=== PATIENT | male | born 1945 | race Caucasian/White ===

== ENCOUNTER 2019-02-06 14:18 | Inpatient (IN) | payer OTHER ==
--- NOTE | 2019-02-06 14:23 | PDOC ---
Rapid Medical Evaluation Time Seen by Provider: 02/06/19 14:20 Medical Evaluation: 02/06/19 14:20 I performed a brief in-person evaluation of this patient. 73-year-old Gibraltarian-speaking male with history of HTN, HLD presenting with 3 days of intermittent chest pain, was told by PCP had abnormal EKG in office. No symptoms currently. Alert, oriented, no distress. I have ordered the following: Stat EKG CBC, CMP, trop, BNP, PT/INR, UA CXR Patient will proceed to the main ED for further evaluation. Discharge Disposition - Diagnosis Chest pain - Referrals - Patient Instructions - Post Discharge Activity
[2019-02-06 15:01] LABS: BASO % 0.6 % (0-2.0); EOS % 2.3 % (0-4.5); HEMATOCRIT 43.6 % (35.4-49); HEMOGLOBIN 14.8 GM/dL (11.7-16.9); LYMPH % 25.8 % (8-40); MCH 32.7 pg (25.7-33.7); MCHC 33.9 g/dl (32.0-35.9); MEAN CELL VOLUME 96.5 fl (80-96); MEAN PLT VOLUME 8.7 fl (7.5-11.1); MONO % 11.4 % (3.8-10.2); NEUT % 59.9 % (42.8-82.8); PLATELET COUNT 199 K/MM3 (134-434); RBC 4.52 M/mm3 (4.00-5.60); RDW 13.6 % (11.9-15.9); WHITE BLOOD COUNT 6.5 K/mm3 (4.0-10.0)
[2019-02-06 15:22] LABS: INR 1.14 (0.83-1.09); PROTHROMBIN TIME (PATIENT) 13.5 SEC (9.7-13.0)
--- NOTE | 2019-02-06 15:30 | PDOC ---
History of Present Illness - General Chief Complaint: Chest Pain Stated Complaint: CHEST PAIN Time Seen by Provider: 02/06/19 14:20 History Source: Patient, Friend (Tesfaye ), Remote Sensing Advisor Used Exam Limitations: Language Barrier - History of Present Illness Initial Comments: 02/06/19 17:10 73yo M with PMH of HTN, HLD presenting from PMD office for abnormal ekg. Patient had been complaining of epigastric pain for 3d and went to his pmd's office. Right now he is denying chest pain, sob, back pain, headache, weakness, numbness/tingling, fevers, chills, cough, recent travel. He is taking Aleeve and another medication for his stomach pains. Denies binge drinking, tobacco use , drug use. PMD: Cristobal PMH: see hpi PSH: appendectomy Meds: none Allergies: nkda Social: occasional alcohol use (beer), remote history of tobacco use Past History - Past Medical History Allergies/Adverse Reactions: Allergies Allergy/AdvReac Type Severity Reaction Status Date / Time No Known Allergies Allergy Verified 02/06/19 14:20 Home Medications: Ambulatory Orders NK [No Known Home Medication] 02/06/19 COPD: No HTN: Yes Hypercholesterolemia: Yes - Immunization History Immunization Up to Date: No - Psycho Social/Smoking Cessation Hx Smoking History: Never smoked Have you smoked in the past 12 months: No Information on smoking cessation initiated: No Hx Alcohol Use: No Drug/Substance Use Hx: No Review of Systems - Review of Systems Constitutional: No: Chills, Fever, Weakness HEENTM: No: Symptoms Reported Respiratory: Yes: SOB with Exertion. No: Cough Cardiac (ROS): No: Chest Pain, Lightheadedness, Palpitations ABD/GI: Yes: Abdominal cramping. No: Constipated, Diarrhea, Nausea, Vomiting Musculoskeletal: No: Symptoms Reported Integumentary: No: Symptoms Reported Neurological: No: Symptoms reported *Physical Exam - Vital Signs Last Vital Signs Temp Pulse Resp BP Pulse Ox 98.2 F 71 16 147/104 H 97 02/06/19 14:21 02/06/19 14:21 02/06/19 14:21 02/06/19 14:21 02/06/19 14:21 - Physical Exam General Appearance: Yes: Appropriately Dressed, Obese. No: Apparent Distress HEENT: positive: EOMI, PAGE, Normal ENT Inspection Neck: positive: Trachea midline, Supple. negative: Decreased range of motion, Lymphadenopathy (R), Lymphadenopathy (L) Respiratory/Chest: positive: Crackles (in lower [place]). negative: Lungs Clear , Normal Breath Sounds, Labored Respiration, Rales, Rhonchi, Wheezing Cardiovascular: positive: S1, S2, Tachycardia, Irregularly Irregular. negative : JVD, Murmur Vascular Pulses: Carotid (R): 2+, Carotid (L): 2+ Gastrointestinal/Abdominal: positive: Normal Bowel Sounds, Soft. negative: Tender, Guarding, Rebound, Tenderness, Hernia Musculoskeletal: negative: CVA Tenderness Extremity: positive: Normal Capillary Refill, Pelvis Stable, Pedal Edema (1+). negative: Swelling, Calf Tenderness Integumentary: positive: Normal Color, Dry, Warm Neurologic: positive: material damage appraiser II-XII NML intact, Fully Oriented, Alert, Normal Mood/ Affect, Normal Response, Motor Strength 09/03 ED Treatment Course - LABORATORY CBC & Chemistry Diagram: 02/06/19 14:46 02/06/19 14:46 - ADDITIONAL ORDERS Additional order review: Laboratory Results 02/06/19 14:46 PT with INR 13.50 H INR 1.14 H 02/06/19 14:46 RBC 4.52 MCV 96.5 H MCHC 33.9 RDW 13.6 MPV 8.7 Neutrophils % 59.9 Lymphocytes % 25.8 Monocytes % 11.4 H Eosinophils % 2.3 Basophils % 0.6 Medical Decision Making - Medical Decision Making 02/06/19 15:30 patient being roomed now, 1h11m into ED visit 73y M with PMH of HTN, HLD presenting from pmd office for abnormal ekg: afib rvr. vitals: tachycardia, bp 140s/100s, saturating well on RA, not tachypenic, afebrile. labs, xray and ekg ordered by e. 02/06/19 17:13 patient found to be in Afib RVR in the 130s. mentating well, no signs of acute distress. labs ordered by RME. pending CXR. ekg: afib with rvr at 121 bpm, no sawyer or deperssions, no signs of acute ichemia. normal qrs, qtc labs show elevated BNP. Cardizem 20mg given with fluids. [id number] score of 2. Will benefit from admission to be started on medications and AC. CXR shows vascular congestion. will give lasix 40mg iv. accepted by hospitalist. 02/06/19 19:20 HR in the 130s, bp 140s/100s. will order 20mg iv cardizem and 30mg po cardizem. Discharge - Discharge Information Problems reviewed: Yes Clinical Impression/Diagnosis: Atrial fibrillation with RVR CHF (congestive heart failure) Qualifiers: Heart failure type: unspecified Heart failure chronicity: acute Qualified Code( s): I50.9 - Heart failure, unspecified Condition: Stable - Admission Yes - Follow up/Referral - Patient Discharge Instructions - Post Discharge Activity
[2019-02-06 15:38] LABS: ALBUMIN 3.8 g/dl (3.4-5.0); BILIRUBIN,TOTAL 1.1 mg/dL (0.2-1); BLOOD UREA NITROGEN 23.6 mg/dL (7-18); CALCIUM 8.7 mg/dL (8.5-10.1); CREATININE 1.2 mg/dL (0.55-1.3); N-TERMINAL BNP 2477.3 pg/ml (5-125); TOT PROT 7.1 g/dl (6.4-8.2)
[2019-02-06] MEDS ORDERED: dilTIAZem HCL 50 MG/10 ML - 10 ML VIAL IVPUSH ONE ×3 (15:38→18:51)
[2019-02-06] MEDS ORDERED: SODIUM CHLORIDE 1,000 ML IV STA (15:38)
[2019-02-06] MEDS ORDERED: dilTIAZem HCL 125 MG/25 ML - 25 ML VIAL ONE (16:10)
--- NOTE | 2019-02-06 16:30 | PDOC ---
Attending Attestation - Resident Resident Name: Karen Jeronimo - ED Attending Attestation I have performed the following: I have examined & evaluated the patient, The case was reviewed & discussed with the resident, I agree w/resident's findings & plan, Exceptions are as noted - HPI HPI: 02/06/19 16:19 73 M with h/o HTN, HLD presenting to ED with chest and epigastric pain x 3 days. Pt denies any SOB. Denies F/C. Denies N/V/D. Denies palpitations. Denies any leg swelling. - Physicial Exam PE: 02/06/19 16:33 "GENERAL: Awake, alert, and fully oriented, in no acute distress. HEAD: No signs of trauma EYES: PERRLA, EOMI, sclera anicteric, conjunctiva clear ENT: Auricles normal inspection, hearing grossly normal, nares patent, oropharynx clear without exudates. Moist mucosa NECK: Nontender, no stepoffs, Normal ROM, supple, no lymphadenopathy, JVD, or masses LUNGS: Breath sounds equal, clear to auscultation bilaterally. No wheezes, and no crackles HEART: tachycardic, irregular, normal S1 and S2, no murmurs, rubs or gallops ABDOMEN: Soft, nontender, normoactive bowel sounds. No guarding, no rebound. No masses EXTREMITIES: Normal range of motion, no edema. No clubbing or cyanosis. No cords, erythema, or tenderness NEUROLOGICAL: Cranial nerves II through XII intact. 5/5 strength and sensation in all extremities, Normal speech, normal gait, normal cerebellar function SKIN: Warm, Dry, normal turgor, no rashes or lesions noted. - Medical Decision Making 02/06/19 16:33 73 M with chest pain, epigastric pain. Found to be in new onset afib with RVR. Pt with benign abdominal exam. - Labs, trops - Rate control - Admit for likely anticoagulation and echo
[2019-02-06] MEDS ORDERED: FUROSEMIDE 40 MG/4 ML INJECTABLE VIAL IVPUSH ONE (18:02)
[2019-02-06] MEDS ORDERED: FUROSEMIDE 40 MG/4 ML INJECTABLE VIAL ONE ×2 (18:25→20:26)
[2019-02-06] MEDS ORDERED: dilTIAZem HCL 30 MG TABLET (FP) PO ONE (18:51)
[2019-02-06] MEDS ORDERED: dilTIAZem HCL 30 MG TABLET (FP) ONE (18:54)
[2019-02-06 19:52] LABS: BILIRUBIN,DIRECT 0.3 mg/dL (0.0-0.2)
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
--- NOTE | 2019-02-06 21:01 | PN ---
Teaching Attending Note Name of Resident: Adalid Chavarria ATTENDING PHYSICIAN STATEMENT I saw and evaluated the patient. I reviewed the resident's note and discussed the case with the resident. I agree with the resident's findings and plan as documented. SUBJECTIVE: 73 yo man c/o chest pain and sob for 4 days. Chest pain is midline and in the epigastric region, intermittent, not radiating. Shortness of breath worse when lying down. Unable to sleep flat comfortably and requires multiple pillows. decreased exercise tolerance. No fevers or recent travels. OBJECTIVE: Last Vital Signs Temp Pulse Resp BP Pulse Ox 97.5 F L 105 H 24 H 143/93 95 02/06/19 19:20 02/06/19 19:25 02/06/19 19:25 02/06/19 19:25 02/06/19 19:25 gen- nad, aaox3 heent -at, nc neck b/l jvd cv -s1+s+ irregularly irregular, no acute ischemic changes abdomen -soft, nt ext -2+ pitting edema up to med shins Abnormal Lab Results 02/06/19 02/06/19 02/06/19 14:46 14:46 14:46 MCV 96.5 H Monocytes % 11.4 H PT with INR 13.50 H INR 1.14 H Chloride 108 H Anion Gap 6 L BUN 23.6 H Total Bilirubin 1.1 H Direct Bilirubin 0.3 H AST 41 H B-Natriuretic Peptide 2477.3 H imaging reviewed cxr - b/l pulm edema present ekg- afib with rvr ASSESSMENT AND PLAN: #Systolic heart failure exacerbation. No old echos on file, first visit to this hospital. CXR c/w pulm edema, bnp elevated .FLuid overload+, +orthopnea. Patient was c/o some chest pain and ACS should be r/o. Trop neg x1 -admit to telemetry -Furosemide 40mg IV bid -i/o -daily weights -echo -start lisinopril 10mg po daily ,titrate as needed -blockers tomorrow #Afib with RVR- rate now better controlled as patient received multiple doses of diltiazem. CHADSVACS 2 score is a least 2 so AC is warranted -start carvedilol 3.125mg po bid for chf and rate control -cardiology evaluation -start on lovenox 1g/kg for ac #ETOH abuse -pt drinks 2 beers daily -ciwa protocol -ativan prn -thiamine -folate -mv -urine drug screen -lovenox for dvt ppx
[2019-02-06] MEDS: ENOXAPARIN NA (PORCINE) 100 MG/1 ML DISP.SYRIN SQ SCH (23:02)
[2019-02-07 01:39] LABS: EPI CELLS 0.1 /HPF (0-5/HPF); HYALINE CASTS 0 /lpf (0-8); PH,URINE 5.5 (5.0-8.0); URINE APPEARANCE CLEAR; URINE BACTERIA 2.6 /hpf (NEGATIVE); URINE BILIRUBIN NEGATIVE (NEGATIVE); URINE COLOR YELLOW; URINE GLUCOSE (UA) NEGATIVE (NEGATIVE); URINE KETONE NEGATIVE (NEGATIVE); URINE LEUK ESTERASE NEGATIVE (NEGATIVE); URINE NITRITE NEGATIVE (NEGATIVE); URINE PROTEIN NEGATIVE (NEGATIVE); URINE RBC 5 /hpf (0-4); URINE UROBILINOGEN 0.2 mg/dL (0.2-1.0); URINE WBC 0 /hpf (0-5)
[2019-02-07] MEDS ORDERED: FUROSEMIDE 40 MG/4 ML INJECTABLE VIAL ONE (06:25)
[2019-02-07] MEDS: FUROSEMIDE 40 MG/4 ML INJECTABLE VIAL IVPUSH SCH ×2 (06:47→17:23)
[2019-02-07] MEDS ORDERED: FUROSEMIDE 40 MG TABLET (FP) PO SCH (08:00)
[2019-02-07] MEDS ORDERED: FUROSEMIDE 40 MG/4 ML INJECTABLE VIAL IVPUSH SCH (10:00)
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
[2019-02-07] MEDS: LISINOPRIL 10 MG TABLET (FP) PO SCH (11:30)
[2019-02-07] MEDS: FOLIC ACID 1 MG TABLET (FP) PO SCH (11:30)
[2019-02-07] MEDS: MULTIVITAMINS (DAILY MVI) TABLET (FP) PO SCH (11:30)
[2019-02-07] MEDS: ENOXAPARIN NA (PORCINE) 100 MG/1 ML DISP.SYRIN SQ SCH ×2 (11:30→21:26)
[2019-02-07] MEDS: PANTOPRAZOLE 40 MG TABLET (FP) PO SCH (11:30)
[2019-02-07] MEDS: THIAMINE HCL 100 MG TABLET (FP) PO SCH (11:30)
[2019-02-07 12:10] LABS: BASO % 0.8 % (0-2.0); EOS % 1.7 % (0-4.5); HEMATOCRIT 45.2 % (35.4-49); HEMOGLOBIN 15.2 GM/dL (11.7-16.9); LYMPH % 29.4 % (8-40); MCH 32.8 pg (25.7-33.7); MCHC 33.6 g/dl (32.0-35.9); MEAN CELL VOLUME 97.4 fl (80-96); MEAN PLT VOLUME 8.9 fl (7.5-11.1); MONO % 11.7 % (3.8-10.2); NEUT % 56.4 % (42.8-82.8); PLATELET COUNT 171 K/MM3 (134-434); RBC 4.64 M/mm3 (4.00-5.60); RDW 13.9 % (11.9-15.9); WHITE BLOOD COUNT 5.7 K/mm3 (4.0-10.0)
--- NOTE | 2019-02-07 12:57 | EKG ---
Test Reason : Blood Pressure : / mmHG Vent. Rate : 121 BPM Atrial Rate : 147 BPM P-R Int : 000 ms QRS Dur : 094 ms QT Int : 330 ms P-R-T Axes : 000 019 095 degrees QTc Int : 468 ms POOR DATA QUALITY, INTERPRETATION MAY BE ADVERSELY AFFECTED ATRIAL FIBRILLATION WITH RAPID VENTRICULAR RESPONSE VOLTAGE CRITERIA FOR LEFT VENTRICULAR HYPERTROPHY NONSPECIFIC ST AND T WAVE ABNORMALITY ABNORMAL ECG NO PREVIOUS ECGS AVAILABLE Confirmed by TRACI BASHIR, JESENIA ([id number]) on 02/07/2019 12:56:35 PM Referred By: Confirmed By:JESENIA AVILES MD
[2019-02-07 13:18] LABS: ALBUMIN 3.6 g/dl (3.4-5.0); BILIRUBIN,TOTAL 1.5 mg/dL (0.2-1); BLOOD UREA NITROGEN 20.5 mg/dL (7-18); CALCIUM 8.6 mg/dL (8.5-10.1); CREATININE 1.1 mg/dL (0.55-1.3); MAGNESIUM 2.3 mg/dL (1.8-2.4); PHOSPHOROUS 2.8 mg/dL (2.5-4.9); POTASSIUM 4.4 mmol/L (3.5-5.1); TOT PROT 7.4 g/dl (6.4-8.2)
--- NOTE | 2019-02-07 14:00 | ECHO ---
Name: ELYSSA CHAIREZ Exam:Adult Echocardiogram Study Date: 02/07/2019 10:39 AM Age: 73 yrs Reason For Study: EVALUATE CARDIAC FUNCTION Height: 68 in Weight: 230 lb BSA: 2.2 m2 MMode/2D Measurements & Calculations IVSd: 0.91 cm Ao root diam: 3.1 cm LVIDd: 6.1 cm LA dimension: 4.3 cm LVIDs: 5.0 cm LVPWd: 0.92 cm EDV(Teich): 186.9 ml LVOT diam: 2.3 cm ESV(Teich): 120.8 ml Doppler Measurements & Calculations MV E max adriano: 76.5 cm/sec Ao V2 max: 128.6 cm/sec MV A max adriano: 27.6 cm/sec Ao max P.6 mmHg MV E/A: 2.8 MV dec time: 0.17 sec ANEL(V,D): 2.2 cm2 LV V1 max P.9 mmHg MR max adriano: 444.6 cm/sec LV V1 max: 69.4 cm/sec MR max P.3 mmHg TR max adriano: 214.4 cm/sec Med Peak E' Adriano: 4.5 cm/sec TR max P.4 mmHg Med E/e': 17.0 Lat Peak E' Adriano: 9.4 cm/sec Lat E/e': 8.1 Procedure The study was technically difficult with many images being suboptimal in quality. Left Ventricle The left ventricle is mildly dilated. Left ventricular systolic function is severely reduced. Ejectio n Fraction = 30%. There is severe global hypokinesis of the left ventricle. Regional wall motion abnorm alities cannot be excluded due to limited visualization. Right Ventricle The right ventricle is normal in size and function. Atria The left atrium is mildly dilated. The right atrium is mildly dilated. Mitral Valve There is mild mitral valve thickening. There is no mitral valve stenosis. There is mild to moderate m itral regurgitation. Tricuspid Valve There is mild tricuspid valve thickening. There is no tricuspid stenosis. There is mild tricuspid regurgitation. Right ventricular systolic pressure is normal. Aortic Valve The aortic valve is not well visualized. No hemodynamically significant valvular aortic stenosis. No aortic regurgitation is present. Pulmonic Valve The pulmonic valve is not well visualized. Great Vessels The aortic root is normal size. Pericardium/Pleura There is no pericardial effusion. Interpretation Summary The study was technically difficult with many images being suboptimal in quality. The left ventricle is mildly dilated. Left ventricular systolic function is severely reduced. Ejection Fraction = 30%. There is severe global hypokinesis of the left ventricle. Regional wall motion abnormalities cannot be excluded due to limited visualization. The left atrium is mildly dilated. The right atrium is mildly dilated. There is mild tricuspid regurgitation. Right ventricular systolic pressure is normal. MD Toy Sánchez 02/07/2019 02:00 PM
--- NOTE | 2019-02-07 18:20 | PN ---
Teaching Attending Note Name of Resident: Luciana Davenport ATTENDING PHYSICIAN STATEMENT I saw and evaluated the patient. I reviewed the resident's note and discussed the case with the resident. I agree with the resident's findings and plan as documented. SUBJECTIVE: Patient seen and examined at bedside in ED. I used client technologies specialist service [phone] to speak with patient in latvian. Patient Services Coordinator ID number is #[id number]. Patient states he has mild chest pressure, better than this AM. Wants to go home. OBJECTIVE: Vital Signs Period Temp Pulse Resp BP Sys/Smith Pulse Ox Last 24 Hr 97.5 F-98.7 F 73-133 20-24 117-149/63-110 94-100 PHYSICAL EXAM: Gen: NAD CVS: s1s2, irreg irreg, tachycardic Abdomen: soft, nt,nd, obese Lungs: CTA b/l, unlabored Ext: trace edema Current Medications Generic Name Dose Route Start Last Admin Trade Name Freq PRN Reason Stop Dose Admin Enoxaparin Sodium 100 mg 02/06/19 21:00 02/07/19 11:30 Lovenox - SQ 100 mg Q12H KATHY Administration Folic Acid 1 mg 02/07/19 10:00 02/07/19 11:30 Folic Acid - PO 1 mg DAILY KATHY Administration Furosemide 40 mg 02/07/19 06:00 02/07/19 17:23 Lasix Injection - IVPUSH 40 mg BIDLASIX KATHY Administration Lisinopril 10 mg 02/07/19 10:00 02/07/19 11:30 Prinivil PO 10 mg DAILY KATHY Administration Metoprolol Succinate 50 mg 02/07/19 10:00 02/07/19 11:30 Toprol Xl - PO 50 mg DAILY KATHY Administration Multivitamins/Minerals/Vitamin C 1 tab 02/07/19 10:00 02/07/19 11:30 Tab-A-Vit - PO 1 tab DAILY KATHY Administration Pantoprazole Sodium 40 mg 02/07/19 10:00 02/07/19 11:30 Protonix - PO 40 mg DAILY KATHY Administration Thiamine HCl 100 mg 02/07/19 10:00 02/07/19 11:30 Vitamin B1 - PO 100 mg DAILY KATHY Administration Laboratory Results - last 24 hr 02/06/19 02/07/19 02/07/19 14:46 00:00 00:30 WBC RBC Hgb Hct MCV MCH MCHC RDW Plt Count MPV Absolute Neuts (auto) Neutrophils % Lymphocytes % Monocytes % Eosinophils % Basophils % Nucleated RBC % Sodium 140 Potassium 4.0 Chloride 108 H Carbon Dioxide 27 Anion Gap 6 L BUN 23.6 H Creatinine 1.2 Est GFR (CKD-EPI)AfAm 70.09 Est GFR (CKD-EPI)NonAf 60.47 Random Glucose 95 Calcium 8.7 Phosphorus Magnesium Total Bilirubin 1.1 H Direct Bilirubin 0.3 H AST 41 H ALT 58 Alkaline Phosphatase 61 Creatine Kinase 160 Creatine Kinase Index 1.6 CK-MB (CK-2) 2.6 Troponin I 0.04 0.05 B-Natriuretic Peptide 2477.3 H Total Protein 7.1 Albumin 3.8 Lipase Cancelled 103 TSH 1.93 Urine Color Yellow Urine Appearance Clear Urine pH 5.5 Ur Specific [place] 1.010 Urine Protein Negative Urine Glucose (UA) Negative Urine Ketones Negative Urine Blood Trace Urine Nitrite Negative Urine Bilirubin Negative Urine Urobilinogen 0.2 Ur Leukocyte Esterase Negative Urine WBC (Auto) 0 Urine RBC (Auto) 5 Urine Casts (Auto) 0 U Epithel Cells (Auto) 0.1 Urine Bacteria (Auto) 2.6 02/07/19 02/07/19 11:18 11:18 WBC 5.7 RBC 4.64 Hgb 15.2 Hct 45.2 MCV 97.4 H MCH 32.8 MCHC 33.6 RDW 13.9 Plt Count 171 MPV 8.9 Absolute Neuts (auto) 3.2 Neutrophils % 56.4 Lymphocytes % 29.4 Monocytes % 11.7 H Eosinophils % 1.7 Basophils % 0.8 Nucleated RBC % 0 Sodium 141 Potassium 4.4 Chloride 108 H Carbon Dioxide 25 Anion Gap 8 BUN 20.5 H Creatinine 1.1 Est GFR (CKD-EPI)AfAm 77.86 Est GFR (CKD-EPI)NonAf 67.18 Random Glucose 103 Calcium 8.6 Phosphorus 2.8 Magnesium 2.3 Total Bilirubin 1.5 H Direct Bilirubin AST 55 H ALT 57 Alkaline Phosphatase 59 Creatine Kinase Creatine Kinase Index CK-MB (CK-2) Troponin I 0.03 B-Natriuretic Peptide Total Protein 7.4 Albumin 3.6 Lipase TSH Urine Color Urine Appearance Urine pH Ur Specific [place] Urine Protein Urine Glucose (UA) Urine Ketones Urine Blood Urine Nitrite Urine Bilirubin Urine Urobilinogen Ur Leukocyte Esterase Urine WBC (Auto) Urine RBC (Auto) Urine Casts (Auto) U Epithel Cells (Auto) Urine Bacteria (Auto) ALL IMAGING REPORTS REVIEWED ASSESSMENT: Chest pain Rapid afib CHF ETOH abuse PLAN: 2dechocardiogram i/os and daily weights fluid restriction awaiting tele bed lasix IV BID lovenox trop x 3 negative rates better controlled on bb needs stress test ciwa protocol thiamine/folate
--- NOTE | 2019-02-07 20:43 | PN ---
Physical Exam: SUBJECTIVE: Patient seen and examined. He reports headache. He denies chest pain , dizziness, shortness of breath, nausea, and vomiting. OBJECTIVE: Vital Signs Period Temp Pulse Resp BP Sys/Smith Pulse Ox Last 24 Hr 97.5 F-98.7 F 73-120 20-22 117-135/63-110 93-100 GENERAL: The patient is awake, alert, and fully oriented, in no acute distress. HEAD: Normal with no signs of trauma. EYES: PERRL, extraocular movements intact, sclera anicteric, conjunctiva clear. No ptosis. ENT: Ears normal, nares patent, moist mucous membranes. NECK: Trachea midline, full range of motion, supple. LUNGS: Breath sounds equal, clear to auscultation bilaterally, no wheezes, no crackles, no accessory muscle use. HEART: Tachycardic, irregular rhythm, S1, S2 without murmur, rub or gallop. ABDOMEN: Soft, nontender, nondistended, normoactive bowel sounds EXTREMITIES: 2+ pulses, warm, well-perfused, no edema. NEUROLOGICAL: Cranial nerves II through XII grossly intact. Normal speech, gait not observed. PSYCH: Normal mood, normal affect. SKIN: Warm, dry, normal turgor, no rashes or lesions noted Laboratory Results - last 24 hr 02/06/19 02/07/19 02/07/19 14:46 00:00 00:30 WBC RBC Hgb Hct MCV MCH MCHC RDW Plt Count MPV Absolute Neuts (auto) Neutrophils % Lymphocytes % Monocytes % Eosinophils % Basophils % Nucleated RBC % Sodium 140 Potassium 4.0 Chloride 108 H Carbon Dioxide 27 Anion Gap 6 L BUN 23.6 H Creatinine 1.2 Est GFR (CKD-EPI)AfAm 70.09 Est GFR (CKD-EPI)NonAf 60.47 Random Glucose 95 Calcium 8.7 Phosphorus Magnesium Total Bilirubin 1.1 H Direct Bilirubin 0.3 H AST 41 H ALT 58 Alkaline Phosphatase 61 Creatine Kinase 160 Creatine Kinase Index 1.6 CK-MB (CK-2) 2.6 Troponin I 0.04 0.05 B-Natriuretic Peptide 2477.3 H Total Protein 7.1 Albumin 3.8 Lipase Cancelled 103 TSH 1.93 Urine Color Yellow Urine Appearance Clear Urine pH 5.5 Ur Specific [place] 1.010 Urine Protein Negative Urine Glucose (UA) Negative Urine Ketones Negative Urine Blood Trace Urine Nitrite Negative Urine Bilirubin Negative Urine Urobilinogen 0.2 Ur Leukocyte Esterase Negative Urine WBC (Auto) 0 Urine RBC (Auto) 5 Urine Casts (Auto) 0 U Epithel Cells (Auto) 0.1 Urine Bacteria (Auto) 2.6 02/07/19 02/07/19 11:18 11:18 WBC 5.7 RBC 4.64 Hgb 15.2 Hct 45.2 MCV 97.4 H MCH 32.8 MCHC 33.6 RDW 13.9 Plt Count 171 MPV 8.9 Absolute Neuts (auto) 3.2 Neutrophils % 56.4 Lymphocytes % 29.4 Monocytes % 11.7 H Eosinophils % 1.7 Basophils % 0.8 Nucleated RBC % 0 Sodium 141 Potassium 4.4 Chloride 108 H Carbon Dioxide 25 Anion Gap 8 BUN 20.5 H Creatinine 1.1 Est GFR (CKD-EPI)AfAm 77.86 Est GFR (CKD-EPI)NonAf 67.18 Random Glucose 103 Calcium 8.6 Phosphorus 2.8 Magnesium 2.3 Total Bilirubin 1.5 H Direct Bilirubin AST 55 H ALT 57 Alkaline Phosphatase 59 Creatine Kinase Creatine Kinase Index CK-MB (CK-2) Troponin I 0.03 B-Natriuretic Peptide Total Protein 7.4 Albumin 3.6 Lipase TSH Urine Color Urine Appearance Urine pH Ur Specific [place] Urine Protein Urine Glucose (UA) Urine Ketones Urine Blood Urine Nitrite Urine Bilirubin Urine Urobilinogen Ur Leukocyte Esterase Urine WBC (Auto) Urine RBC (Auto) Urine Casts (Auto) U Epithel Cells (Auto) Urine Bacteria (Auto) Active Medications Generic Name Dose Route Start Last Admin Trade Name Freq PRN Reason Stop Dose Admin Enoxaparin Sodium 100 mg 02/06/19 21:00 02/07/19 11:30 Lovenox - SQ 100 mg Q12H KATHY Administration Folic Acid 1 mg 02/07/19 10:00 02/07/19 11:30 Folic Acid - PO 1 mg DAILY KATHY Administration Furosemide 40 mg 02/07/19 06:00 02/07/19 17:23 Lasix Injection - IVPUSH 40 mg BIDLASIX KATHY Administration Lisinopril 10 mg 02/07/19 10:00 02/07/19 11:30 Prinivil PO 10 mg DAILY KATHY Administration Metoprolol Succinate 50 mg 02/07/19 10:00 02/07/19 11:30 Toprol Xl - PO 50 mg DAILY KATHY Administration Multivitamins/Minerals/Vitamin C 1 tab 02/07/19 10:00 02/07/19 11:30 Tab-A-Vit - PO 1 tab DAILY KATHY Administration Pantoprazole Sodium 40 mg 02/07/19 10:00 02/07/19 11:30 Protonix - PO 40 mg DAILY KATHY Administration Thiamine HCl 100 mg 02/07/19 10:00 02/07/19 11:30 Vitamin B1 - PO 100 mg DAILY KATHY Administration ASSESSMENT/PLAN: 73 y/o Icelandic speaking male with questionable PMHx of HTN, HLD here for chest pain x4 days and SOB when sleeping. 1)CHF - no known history of CHF, no previous echos to check EF negative trops lisinopril consider BB 2)A fib - no known history of A fib, likely secondary to CHF EKG a-fib with RVR cards consult 3)Abd pain - patient states pain is epigastric RUQ positive for hepatomegaly Visit type - Emergency Visit Emergency Visit: Yes ED Registration Date: 02/06/19 Care time: The patient presented to the Emergency Department on the above date and was hospitalized for further evaluation of their emergent condition. - New Patient This patient is new to me today: Yes Date on this admission: 02/08/19 - Critical Care Critical Care patient: No - Discharge Referral Referred to [facility] Med P.C.: No ATTENDING PHYSICIAN STATEMENT I saw and evaluated the patient. I reviewed the resident's note and discussed the case with the resident. I agree with the resident's findings and plan as documented. SUBJECTIVE: OBJECTIVE: ASSESSMENT AND PLAN:
[2019-02-07 20:44] VITALS: BMI 35.0
[2019-02-08] MEDS: FUROSEMIDE 40 MG/4 ML INJECTABLE VIAL IVPUSH SCH ×2 (05:37→15:33)
[2019-02-08] MEDS ORDERED: PNEUMOC 13-VAL CONJ-DIP CRM/PF 0.5 ML DISP.SYRIN IM ONE (10:00)
--- NOTE | 2019-02-08 10:02 | PN ---
Progress Note, Physician Chief Complaint: Pt ambulatory; through arabic translator, denies chest pain presently ( History of Present Illness: 73yo Mwhite man (silvia Hale) with PMH of HTN, HLD, AF, diastolic CHF, presenting from PMD office for abnormal ekg. Patient had been complaining of epigastric pain for 3d and went to his pmd's office. Right now he is denying chest pain, sob, back pain, headache, weakness, numbness/tingling, fevers, chills, cough, recent travel. He is taking Aleeve and another medication for his stomach pains. Denies binge drinking, tobacco use, drug use. - Current Medication List Current Medications: Active Medications Enoxaparin Sodium (Lovenox -) 100 mg SQ Q12H [facility] Last Admin: 02/07/19 21:26 Dose: 100 mg Folic Acid (Folic Acid -) 1 mg PO DAILY [facility] Last Admin: 02/07/19 11:30 Dose: 1 mg Furosemide (Lasix Injection -) 40 mg IVPUSH BIDLASIX [facility] Last Admin: 02/08/19 05:37 Dose: 40 mg Lisinopril (Prinivil) 10 mg PO DAILY [facility] Last Admin: 02/07/19 11:30 Dose: 10 mg Metoprolol Succinate (Toprol Xl -) 50 mg PO DAILY [facility] Last Admin: 02/07/19 11:30 Dose: 50 mg Multivitamins/Minerals/Vitamin C (Tab-A-Vit -) 1 tab PO DAILY [facility] Last Admin: 02/07/19 11:30 Dose: 1 tab Pantoprazole Sodium (Protonix -) 40 mg PO DAILY [facility] Last Admin: 02/07/19 11:30 Dose: 40 mg Pneumococcal 13-Valent Conj Vacc (Prevnar 13 Syringe -) 0.5 ml IM .ONCE ONE Stop: 02/08/19 10:01 Thiamine HCl (Vitamin B1 -) 100 mg PO DAILY [facility] Last Admin: 02/07/19 11:30 Dose: 100 mg - Objective Vital Signs: Vital Signs Temperature 97.6 F 02/08/19 06:00 Pulse Rate 72 02/08/19 06:00 Respiratory Rate 18 02/08/19 06:00 Blood Pressure 129/97 02/08/19 06:00 O2 Sat by Pulse Oximetry (%) 96 02/08/19 04:00 Constitutional: Yes: Anxious Eyes: Yes: WNL HENT: Yes: WNL Cardiovascular: Yes: S1 (varies in intenstiy), S2 Respiratory: Yes: Regular Gastrointestinal: Yes: Soft ...Rectal Exam: Yes: Deferred Genitourinary: No: Anuria Musculoskeletal: Yes: WNL Extremities: Yes: WNL Edema: No Peripheral Pulses WNL: Yes Integumentary: Yes: WNL Neurological: Yes: Alert Psychiatric: Yes: Other Labs: CBC, BMP 02/07/19 11:18 02/07/19 11:18 INR, PTT INR 1.14 (0.83-1.09) H 02/06/19 14:46 - ....Imaging Chest X-ray: Image Reviewed (moderate vascular congestion) EKG: Image Reviewed (AF) Problem List - Problems (1) Atrial fibrillation with RVR Assessment/Plan: On metoprolol ER for HR control. On Lovenox. Ideally, pt should be converted to PO anticoagulant (e.g. apixaban), but need to ascertain risk of falls (alcoholism). Severely decreased LVEF. Stress Lexiscan MIBI in am (on metoprolol; pt denies hx asthma). Code(s): I48.91 - UNSPECIFIED ATRIAL FIBRILLATION (2) Alcoholism Code(s): F10.20 - ALCOHOL DEPENDENCE, UNCOMPLICATED (3) HTN (hypertension) Code(s): I10 - ESSENTIAL (PRIMARY) HYPERTENSION (4) Acute on chronic systolic CHF (congestive heart failure) Assessment/Plan: Discontinue lisinopril. Start ENtresto. Start spironolactone (and decrease furosemide to once daily). F/u BUN/Cr, electrolytes, Is and Os, daily weight. Code(s): I50.23 - ACUTE ON CHRONIC SYSTOLIC (CONGESTIVE) HEART FAILURE
[2019-02-08] MEDS: FOLIC ACID 1 MG TABLET (FP) PO SCH (11:39)
[2019-02-08] MEDS: ENOXAPARIN NA (PORCINE) 100 MG/1 ML DISP.SYRIN SQ SCH ×2 (11:39→21:43)
[2019-02-08] MEDS: THIAMINE HCL 100 MG TABLET (FP) PO SCH (11:39)
[2019-02-08] MEDS: LISINOPRIL 10 MG TABLET (FP) PO SCH (11:39)
[2019-02-08] MEDS: PANTOPRAZOLE 40 MG TABLET (FP) PO SCH (11:39)
[2019-02-08] MEDS: MULTIVITAMINS (DAILY MVI) TABLET (FP) PO SCH (11:39)
--- NOTE | 2019-02-08 15:40 | PN ---
Teaching Attending Note Name of Resident: Linda Azul ATTENDING PHYSICIAN STATEMENT I saw and evaluated the patient. I reviewed the resident's note and discussed the case with the resident. I agree with the resident's findings and plan as documented with exceptions below. SUBJECTIVE: Patient seen and examined. denies any chest pain or dyspnea. Ambulating with no concerns. OBJECTIVE: Vital Signs Period Temp Pulse Resp BP Sys/Smith Pulse Ox Last 24 Hr 97.6 F-98.2 F 72-129 18-20 112-144/63-97 93-97 Intake & Output 02/05/19 02/06/19 02/07/19 02/08/19 23:59 23:59 23:59 23:59 Intake Total 10 440 Balance 10 440 Weight 230 lb 230 lb 6.4 oz 226 lb General: ambulating in hallway, no acute distress CVS:S1S2 irregular, tachycardic, tele: Afib intermittent with 150s Abdomen:Soft, obese, NT extremities: 2+ pedal pitting edema Home Medications Medication Instructions Recorded Metoprolol Succinate [Toprol Xl -] 50 mg PO DAILY 05/08/15 Olmesartan/Hydrochlorothiazide 1 each PO DAILY 05/08/15 [Benicar Hct 20-12.5 mg Tablet] Diclofenac Sodium 1 applic TP ASDIR 02/06/19 Metoprolol Succinate [Toprol Xl] 50 mg PO DAILY 02/06/19 Omeprazole 40 mg PO DAILY 02/06/19 Active Medications Enoxaparin Sodium (Lovenox -) 100 mg SQ Q12H [facility] Last Admin: 02/08/19 11:39 Dose: 100 mg Folic Acid (Folic Acid -) 1 mg PO DAILY [facility] Last Admin: 02/08/19 11:39 Dose: 1 mg Furosemide (Lasix Injection -) 40 mg IVPUSH BIDLASIX [facility] Last Admin: 02/08/19 15:33 Dose: 40 mg Lisinopril (Prinivil) 10 mg PO DAILY [facility] Last Admin: 02/08/19 11:39 Dose: 10 mg Metoprolol Succinate (Toprol Xl -) 100 mg PO DAILY [facility] Multivitamins/Minerals/Vitamin C (Tab-A-Vit -) 1 tab PO DAILY [facility] Last Admin: 02/08/19 11:39 Dose: 1 tab Pantoprazole Sodium (Protonix -) 40 mg PO DAILY [facility] Last Admin: 02/08/19 11:39 Dose: 40 mg Thiamine HCl (Vitamin B1 -) 100 mg PO DAILY KATHY Last Admin: 02/08/19 11:39 Dose: 100 mg ASSESSMENT AND PLAN: 73 yom with PMHx of HTN, HLD, ETOH abuse admitted with chest pain, found with new EF 30% and new onset atrial fibrillation -Acute systolic heart failure exacerbation -New cardiomyopathy -New onset Atrial fibrillation with RVR, from above +/- ETOH withdrawal -ETOH abuse/withdrawal -HTN -HLD Plan: lasix 40 mg IV BID, strict I/Os, daily weights Cardiology input noted Increase toprol XL, For stress test when HR improved. CIWA protocol, folate thiamine, ativan prn if concerns for withdrawal noted Lovenox BID, plan for transition to NOAC pending ischemic w/u Dispo pending clinical improvement.
--- NOTE | 2019-02-08 16:06 | PN ---
Physical Exam: SUBJECTIVE: Patient seen and examined. Pt denies chest pain. OBJECTIVE: Vital Signs Period Temp Pulse Resp BP Sys/Smith Pulse Ox Last 24 Hr 97.6 F-98.2 F 72-129 18-20 112-144/63-97 93-97 GENERAL: The patient is awake, alert, and fully oriented, in no acute distress. HEAD: Normal with no signs of trauma. EYES: PERRL, extraocular movements intact, sclera anicteric, conjunctiva clear. No ptosis. ENT: Ears normal, nares patent, oropharynx clear without exudates, moist mucous membranes. NECK: Trachea midline, full range of motion, supple. LUNGS: Breath sounds equal, clear to auscultation bilaterally, no wheezes, no crackles, no accessory muscle use. HEART: Regular rate and rhythm, S1, S2 without murmur, rub or gallop. ABDOMEN: Soft, nontender, nondistended, normoactive bowel sounds, no guarding, no rebound, no hepatosplenomegaly, no masses. EXTREMITIES: 2+ pulses, warm, well-perfused, no edema. NEUROLOGICAL: Cranial nerves II through XII grossly intact. Normal speech, gait not observed. PSYCH: Normal mood, normal affect. SKIN: Warm, dry, normal turgor, no rashes or lesions noted Active Medications Generic Name Dose Route Start Last Admin Trade Name Rudyq PRN Reason Stop Dose Admin Enoxaparin Sodium 100 mg 02/06/19 21:00 02/08/19 11:39 Lovenox - SQ 100 mg Q12H KATHY Administration Folic Acid 1 mg 02/07/19 10:00 02/08/19 11:39 Folic Acid - PO 1 mg DAILY KATHY Administration Metoprolol Succinate 100 mg 02/09/19 10:00 Toprol Xl - PO DAILY KATHY Multivitamins/Minerals/Vitamin C 1 tab 02/07/19 10:00 02/08/19 11:39 Tab-A-Vit - PO 1 tab DAILY KATHY Administration Pantoprazole Sodium 40 mg 02/07/19 10:00 02/08/19 11:39 Protonix - PO 40 mg DAILY KATHY Administration Sacubitril/Valsartan 1 tab 02/09/19 22:00 Entresto 24 Mg-26 Mg Tablet PO BID KATHY Spironolactone 25 mg 02/08/19 16:15 Aldactone - PO DAILY KATHY Thiamine HCl 100 mg 02/07/19 10:00 02/08/19 11:39 Vitamin B1 - PO 100 mg DAILY KATHY Administration ASSESSMENT/PLAN: Mr. Washington is a 73y/o male with systolic CHF, a-fib with RVR, HTN, HLD, and chronic pain who presents with shortness of breath x 4 days. #acute systolic CHF Dyspnea presentation. CXR cardiomegaly and pulmonary vascular congestion. Echo EF 30%, severe global hypokinesis of left ventricle. 2kg weight loss since yesterday. BNP 2477. -increase Toprol to 100mg daily -spironolactone 25mg daily -Entresto daily -reduce Lasix IV -stress test planned for tomorrow -NPO after midnight -monitor I/Os, daily weights -cards following -Mg #a-fib with RVR, acute in setting of CHF exacerbation vs chronic Tachycardia is improving, HR max 120s. Tele shows episodes of a-fib. -Toprol -tele monitoring -lovenox, consider switching to DOAC #hyperbilirubinemia Tbili 1.5. U/S shows hepatomegaly. -CMP trend #transaminitis AST elevation but downtrending. U/S hepatomegaly. -CMP trend #alcohol use Pt reports different amounts of alcohol intake. He is currently not showing signs of withdrawal. May increase risk of bleeding if placed on DOAC. -continue to monitor for withdrawal signs -Ativan PRN -vitamin supplementation -Phosphorus FEN PO fluids monitor Mg, Phos, tbili NPO after midnight for nuclear stress in morning DVT Ppx Lovenox Dispo tele monitoring, waiting for stress test results. ATTENDING PHYSICIAN STATEMENT I saw and evaluated the patient. I reviewed the resident's note and discussed the case with the resident. I agree with the resident's findings and plan as documented. SUBJECTIVE: OBJECTIVE: ASSESSMENT AND PLAN:
[2019-02-08] MEDS: SPIRONOLACTONE 25 MG TABLET (FP) PO SCH (20:04)
[2019-02-09 08:02] LABS: ALBUMIN 3.5 g/dl (3.4-5.0); BILIRUBIN,DIRECT 0.3 mg/dL (0.0-0.2); BILIRUBIN,TOTAL 1.2 mg/dL (0.2-1); BLOOD UREA NITROGEN 28.8 mg/dL (7-18); CREATININE 1.2 mg/dL (0.55-1.3); MAGNESIUM 2.2 mg/dL (1.8-2.4); PHOSPHOROUS 3.4 mg/dL (2.5-4.9); POTASSIUM 3.5 mmol/L (3.5-5.1); TOT PROT 6.7 g/dl (6.4-8.2)
[2019-02-09] MEDS ORDERED: REGADENOSON 0.4 MG/5 ML PRE-FILLED SYRINGE IVPUSH ONE ×2 (10:17→11:15)
[2019-02-09] MEDS: SPIRONOLACTONE 25 MG TABLET (FP) PO SCH (10:36)
[2019-02-09] MEDS: ENOXAPARIN NA (PORCINE) 100 MG/1 ML DISP.SYRIN SQ SCH ×2 (12:15→21:48)
[2019-02-09] MEDS: MULTIVITAMINS (DAILY MVI) TABLET (FP) PO SCH (12:16)
[2019-02-09] MEDS: FOLIC ACID 1 MG TABLET (FP) PO SCH (12:16)
[2019-02-09] MEDS: PANTOPRAZOLE 40 MG TABLET (FP) PO SCH (12:16)
[2019-02-09] MEDS: THIAMINE HCL 100 MG TABLET (FP) PO SCH (12:16)
[2019-02-09] MEDS ORDERED: POTASSIUM CHLORIDE TABS 20 MEQ TABLET.ER (FP) PO ONE (12:48)
--- NOTE | 2019-02-09 12:48 | PN ---
Teaching Attending Note Name of Resident: Linda Azul ATTENDING PHYSICIAN STATEMENT I saw and evaluated the patient. I reviewed the resident's note and discussed the case with the resident. I agree with the resident's findings and plan as documented with exceptions below. SUBJECTIVE: Patient seen and examined. No complaints, no chest pain or dyspnea. OBJECTIVE: Vital Signs Period Temp Pulse Resp BP Sys/Smith Pulse Ox Last 24 Hr 97.7 F-98.0 F 64-97 18-20 120-144/73-87 95 Intake & Output 02/06/19 02/07/19 02/08/19 02/09/19 23:59 23:59 23:59 23:59 Intake Total 10 740 Output Total 1 1 Balance 10 739 -1 Weight 230 lb 230 lb 6.4 oz 226 lb 226 lb 12.8 oz General: sitting in bed, no acute distress neck: soft, supple, no JVD Chest: CTAB, no rales or wheezing Abdomen: soft, obese, NT Extremities: 2+ pitting edema Home Medications Medication Instructions Recorded Metoprolol Succinate [Toprol Xl -] 50 mg PO DAILY 05/08/15 Olmesartan/Hydrochlorothiazide 1 each PO DAILY 05/08/15 [Benicar Hct 20-12.5 mg Tablet] Metoprolol Succinate [Toprol Xl] 50 mg PO DAILY 02/06/19 RX: Diclofenac Sodium 1 applic TP ASDIR 02/06/19 RX: Omeprazole 40 mg PO DAILY 02/06/19 Active Medications Enoxaparin Sodium (Lovenox -) 100 mg SQ Q12H [facility] Last Admin: 02/09/19 12:15 Dose: 100 mg Folic Acid (Folic Acid -) 1 mg PO DAILY [facility] Last Admin: 02/09/19 12:16 Dose: 1 mg Metoprolol Succinate (Toprol Xl -) 100 mg PO DAILY [facility] Last Admin: 02/09/19 10:36 Dose: 100 mg Multivitamins/Minerals/Vitamin C (Tab-A-Vit -) 1 tab PO DAILY [facility] Last Admin: 02/09/19 12:16 Dose: 1 tab Pantoprazole Sodium (Protonix -) 40 mg PO DAILY [facility] Last Admin: 02/09/19 12:16 Dose: 40 mg Sacubitril/Valsartan (Entresto 24 Mg-26 Mg Tablet) 1 tab PO BID [facility] Spironolactone (Aldactone -) 25 mg PO DAILY [facility] Last Admin: 02/09/19 10:36 Dose: 25 mg Thiamine HCl (Vitamin B1 -) 100 mg PO DAILY [facility] Last Admin: 02/09/19 12:16 Dose: 100 mg Laboratory Results - last 24 hr 02/09/19 06:05 Sodium 139 Potassium 3.5 Chloride 107 Carbon Dioxide 27 Anion Gap 6 L BUN 28.8 H Creatinine 1.2 Est GFR (CKD-EPI)AfAm 70.09 Est GFR (CKD-EPI)NonAf 60.47 Random Glucose 85 Calcium 9.0 Phosphorus 3.4 Magnesium 2.2 Total Bilirubin 1.2 H Direct Bilirubin 0.3 H AST 24 ALT 44 Alkaline Phosphatase 54 Total Protein 6.7 Albumin 3.5 ASSESSMENT AND PLAN: 73 yom with PMHx of HTN, HLD, ETOH abuse admitted with chest pain, found with new EF 30% and new onset atrial fibrillation -Acute systolic heart failure exacerbation -New cardiomyopathy -New onset Atrial fibrillation with RVR, from above +/- ETOH withdrawal -ETOH abuse/withdrawal -Hypokalemia -HTN -HLD Plan: s/p stress test, follow up. change lasix to 40 mg po daily, monitor volume status. transition to eliquis per cardiology recs pending stress test results. Ambulating well in the hospital with no gait instability or fall concerns. Platelets stable. Continue entresto/spironolactone. PO Kcl supple prn. Folate, thiamine, no concerns for ETOh withdrawal currently. Dispo dc home in 24 hours vs transfer to cardiac cath pending stress results and cardiology recs.
--- NOTE | 2019-02-09 14:21 | EKG ---
Test Reason : Blood Pressure : / mmHG Vent. Rate : 116 BPM Atrial Rate : 122 BPM P-R Int : 192 ms QRS Dur : 094 ms QT Int : 348 ms P-R-T Axes : 000 036 125 degrees QTc Int : 483 ms ATRIAL FIBRILLATION LEFT VENTRICULAR HYPERTROPHY WITH REPOLARIZATION ABNORMALITY ABNORMAL ECG Confirmed by BECCA SPENCER MD ([id number]) on 02/09/2019 2:20:37 PM Also confirmed by BECCA SPENCER MD ([id number]), editorial cartoonist FRANCISCO JAVIER STARK ([id number]) on 03/07/2019 2:21:41 PM Referred By: Confirmed By:BECCA SPENCER MD
--- NOTE | 2019-02-09 16:32 | PN ---
Physical Exam: SUBJECTIVE: Patient seen and examined. He denies chest pain, palpitations, and shortness of breath. OBJECTIVE: Vital Signs Period Temp Pulse Resp BP Sys/Smith Pulse Ox Last 24 Hr 97.7 F-98.4 F 64-122 18-20 118-133/70-87 95 GENERAL: The patient is awake, alert, and fully oriented, in no acute distress. HEAD: Normal with no signs of trauma. EYES: PERRL, extraocular movements intact ENT: Ears normal, nares patent, moist mucous membranes. NECK: Trachea midline, full range of motion LUNGS: Breath sounds equal, clear to auscultation bilaterally, no wheezes, no crackles, no accessory muscle use. HEART: Tachycardic, irregular rhythm, no murmur appreciated ABDOMEN: Nondistended EXTREMITIES: Warm, well-perfused, no edema. NEUROLOGICAL: Normal speech. PSYCH: Normal mood, normal affect. SKIN: Warm, dry, normal turgor, no rashes or lesions noted Laboratory Results - last 24 hr 02/09/19 06:05 Sodium 139 Potassium 3.5 Chloride 107 Carbon Dioxide 27 Anion Gap 6 L BUN 28.8 H Creatinine 1.2 Est GFR (CKD-EPI)AfAm 70.09 Est GFR (CKD-EPI)NonAf 60.47 Random Glucose 85 Calcium 9.0 Phosphorus 3.4 Magnesium 2.2 Total Bilirubin 1.2 H Direct Bilirubin 0.3 H AST 24 ALT 44 Alkaline Phosphatase 54 Total Protein 6.7 Albumin 3.5 Active Medications Generic Name Dose Route Start Last Admin Trade Name Freq PRN Reason Stop Dose Admin Enoxaparin Sodium 100 mg 02/06/19 21:00 02/09/19 12:15 Lovenox - SQ 100 mg Q12H KATHY Administration Folic Acid 1 mg 02/07/19 10:00 02/09/19 12:16 Folic Acid - PO 1 mg DAILY KATHY Administration Metoprolol Succinate 100 mg 02/09/19 10:00 02/09/19 10:36 Toprol Xl - PO 100 mg DAILY KATHY Administration Multivitamins/Minerals/Vitamin C 1 tab 02/07/19 10:00 02/09/19 12:16 Tab-A-Vit - PO 1 tab DAILY KATHY Administration Pantoprazole Sodium 40 mg 02/07/19 10:00 02/09/19 12:16 Protonix - PO 40 mg DAILY KATHY Administration Sacubitril/Valsartan 1 tab 02/09/19 22:00 Entresto 24 Mg-26 Mg Tablet PO BID KATHY Spironolactone 25 mg 02/08/19 16:15 02/09/19 10:36 Aldactone - PO 25 mg DAILY KATHY Administration Thiamine HCl 100 mg 02/07/19 10:00 02/09/19 12:16 Vitamin B1 - PO 100 mg DAILY KATHY Administration ASSESSMENT/PLAN: Mr. Washington is a 73y/o male with systolic CHF, a-fib with RVR, HTN, HLD, and chronic pain who presents with shortness of breath x 4 days. #acute systolic CHF Dyspnea presentation. CXR cardiomegaly and pulmonary vascular congestion. Echo EF 30%, severe global hypokinesis of left ventricle. 2kg weight loss since admission. BNP 2477. Stress test no global ischemia at rest. -Toprol 100mg daily -spironolactone 25mg daily -Entresto daily -switch to PO lasix 40 daily -monitor I/Os, daily weights -cards following -Mg #a-fib with RVR, acute in setting of CHF exacerbation vs chronic Pt became tachy to 130s in the afternoon. Tele shows a-fib and tachycardia. Pt was given done extra dose of metoprolol. -Toprol -tele monitoring -lovenox, consider switching to DOAC #hyperbilirubinemia Tbili 1.2. Downtrending. U/S shows hepatomegaly. -CMP trend #transaminitis, resolved U/S hepatomegaly. -CMP trend #alcohol use Pt reports different amounts of alcohol intake. He is currently not showing signs of withdrawal. May increase risk of bleeding if placed on DOAC. -continue to monitor for withdrawal signs -Ativan PRN -vitamin supplementation -Phosphorus FEN PO fluids monitor Mg, Phos, tbili NPO after midnight for nuclear stress in morning DVT Ppx Lovenox Dispo tele monitoring, waiting for stress test results. Visit type - Emergency Visit Emergency Visit: Yes ED Registration Date: 02/06/19 Care time: The patient presented to the Emergency Department on the above date and was hospitalized for further evaluation of their emergent condition. - New Patient This patient is new to me today: No - Critical Care Critical Care patient: No - Discharge Referral Referred to [facility] Med P.C.: No ATTENDING PHYSICIAN STATEMENT I saw and evaluated the patient. I reviewed the resident's note and discussed the case with the resident. I agree with the resident's findings and plan as documented. SUBJECTIVE: OBJECTIVE: ASSESSMENT AND PLAN:
[2019-02-09] MEDS ORDERED: PT OWN MED DRAWER 7, Y5N ONE (20:48)
[2019-02-09] MEDS: SACUBITRIL/VALSARTAN 24 MG-26 MG TABLET PO SCH (21:48)
--- NOTE | 2019-02-10 07:00 | PN ---
Progress Note, Physician Chief Complaint: Pt ambulatory; through senior interactive producer, denies chest pain or dyspnea. History of Present Illness: 73yo white man (silvia Hale) with PMH of HTN, HLD, AF, diastolic CHF, presenting from PMD office for abnormal ekg. Patient had been complaining of epigastric pain for 3d and went to his pmd's office. Right now he is denying chest pain, sob, back pain, headache, weakness, numbness/tingling, fevers, chills, cough, recent travel. He is taking Aleeve and another medication for his stomach pains. Denies binge drinking, tobacco use, drug use. - Current Medication List Current Medications: Active Medications Enoxaparin Sodium (Lovenox -) 100 mg SQ Q12H [facility] Last Admin: 02/09/19 21:48 Dose: 100 mg Folic Acid (Folic Acid -) 1 mg PO DAILY [facility] Last Admin: 02/09/19 12:16 Dose: 1 mg Furosemide (Lasix -) 40 mg PO DAILY [facility] Metoprolol Succinate (Toprol Xl -) 100 mg PO DAILY [facility] Last Admin: 02/09/19 10:36 Dose: 100 mg Multivitamins/Minerals/Vitamin C (Tab-A-Vit -) 1 tab PO DAILY [facility] Last Admin: 02/09/19 12:16 Dose: 1 tab Pantoprazole Sodium (Protonix -) 40 mg PO DAILY [facility] Last Admin: 02/09/19 12:16 Dose: 40 mg Sacubitril/Valsartan (Entresto 24 Mg-26 Mg Tablet) 1 tab PO BID [facility] Last Admin: 02/09/19 21:48 Dose: 1 tab Spironolactone (Aldactone -) 25 mg PO DAILY [facility] Last Admin: 02/09/19 10:36 Dose: 25 mg Thiamine HCl (Vitamin B1 -) 100 mg PO DAILY [facility] Last Admin: 02/09/19 12:16 Dose: 100 mg - Objective Vital Signs: Vital Signs Temperature 97.9 F 02/10/19 06:00 Pulse Rate 108 H 02/10/19 06:00 Respiratory Rate 20 02/10/19 06:00 Blood Pressure 112/95 02/10/19 06:00 O2 Sat by Pulse Oximetry (%) 97 02/09/19 21:00 Constitutional: Yes: No Distress Eyes: Yes: WNL HENT: Yes: WNL Cardiovascular: Yes: S1 (varies in intensity), S2 Labs: CBC, BMP 02/07/19 11:18 02/09/19 06:05 INR, PTT INR 1.14 (0.83-1.09) H 02/06/19 14:46 Problem List - Problems (1) Atrial fibrillation with RVR Assessment/Plan: On metoprolol ER for HR control; increase dose as tolerated. On Lovenox. Ideally, pt should be converted to PO anticoagulant for long-term use (e.g. apixaban), but need to ascertain risk of falls (alcoholism). Severely decreased LVEF. Stress Lexiscan MIBI today (on metoprolol; pt denies hx asthma). Code(s): I48.91 - UNSPECIFIED ATRIAL FIBRILLATION (2) Alcoholism Assessment/Plan: f/u rehabilitation. ? neurologic/mental changes induced by alcohol (e.g. exhibits uninhibited, inappropriate behavior during this admission). Code(s): F10.20 - ALCOHOL DEPENDENCE, UNCOMPLICATED (3) HTN (hypertension) Code(s): I10 - ESSENTIAL (PRIMARY) HYPERTENSION (4) Acute on chronic systolic CHF (congestive heart failure) Assessment/Plan: On metoprolol; increase dose. On Entresto (if cost is prohibitive, will need to return to ACEI). On spironolactone and furosemide. F/u BUN/Cr, electrolytes, Is and Os, daily weight. Addendum: stress MIBI today shows small area of mild inferior wall ischemia Once CHF and AF are controlled, pt may be followed as outpatient by PMD, training and development coordinator. If deemed competent to comply with medications and rehab therapy, may have coronary angiogram and LVEF as outpatient; may require ICD. Code(s): I50.23 - ACUTE ON CHRONIC SYSTOLIC (CONGESTIVE) HEART FAILURE (5) CAD (coronary artery disease) Code(s): I25.10 - ATHSCL HEART DISEASE OF [place] CORONARY ARTERY W/O ANG PCTRS
[2019-02-10 09:03] LABS: BASO % 0.5 % (0-2.0); EOS % 3.2 % (0-4.5); HEMATOCRIT 47.1 % (35.4-49); LYMPH % 37.9 % (8-40); MCH 32.8 pg (25.7-33.7); MCHC 33.9 g/dl (32.0-35.9); MEAN CELL VOLUME 96.5 fl (80-96); MEAN PLT VOLUME 9.1 fl (7.5-11.1); MONO % 12.8 % (3.8-10.2); NEUT % 45.6 % (42.8-82.8); PLATELET COUNT 190 K/MM3 (134-434); RBC 4.88 M/mm3 (4.00-5.60); RDW 13.5 % (11.9-15.9); WHITE BLOOD COUNT 5.2 K/mm3 (4.0-10.0)
[2019-02-10 09:43] LABS: ALBUMIN 3.8 g/dl (3.4-5.0); BILIRUBIN,TOTAL 1.2 mg/dL (0.2-1); BLOOD UREA NITROGEN 23.2 mg/dL (7-18); CALCIUM 9.1 mg/dL (8.5-10.1); CREATININE 1.1 mg/dL (0.55-1.3); MAGNESIUM 2.3 mg/dL (1.8-2.4); PHOSPHOROUS 2.8 mg/dL (2.5-4.9); TOT PROT 7.2 g/dl (6.4-8.2)
[2019-02-10] MEDS ORDERED: PT OWN MED DRAWER 7, Y5N ONE (09:54)
[2019-02-10] MEDS: ENOXAPARIN NA (PORCINE) 100 MG/1 ML DISP.SYRIN SQ SCH (09:57)
[2019-02-10] MEDS: FOLIC ACID 1 MG TABLET (FP) PO SCH (09:57)
[2019-02-10] MEDS: THIAMINE HCL 100 MG TABLET (FP) PO SCH (09:57)
[2019-02-10] MEDS: PANTOPRAZOLE 40 MG TABLET (FP) PO SCH (09:57)
[2019-02-10] MEDS: MULTIVITAMINS (DAILY MVI) TABLET (FP) PO SCH (09:57)
[2019-02-10] MEDS: SPIRONOLACTONE 25 MG TABLET (FP) PO SCH (09:58)
[2019-02-10] MEDS: SACUBITRIL/VALSARTAN 24 MG-26 MG TABLET PO SCH (09:58)
[2019-02-10] MEDS ORDERED: FUROSEMIDE 40 MG TABLET (FP) PO SCH (10:00)
--- NOTE | 2019-02-10 12:25 | PN ---
Progress Note, Physician Chief Complaint: Cardiology for Dr. Leon History of Present Illness: Asymptomatic rapid afib, denies chest pain, sob, palpitations, near or true syncope. - Current Medication List Current Medications: Active Medications Enoxaparin Sodium (Lovenox -) 100 mg SQ Q12H [facility] Last Admin: 02/10/19 09:57 Dose: 100 mg Folic Acid (Folic Acid -) 1 mg PO DAILY [facility] Last Admin: 02/10/19 09:57 Dose: 1 mg Furosemide (Lasix -) 40 mg PO DAILY [facility] Last Admin: 02/10/19 09:57 Dose: 40 mg Metoprolol Succinate (Toprol Xl -) 100 mg PO DAILY [facility] Last Admin: 02/10/19 09:58 Dose: 100 mg Multivitamins/Minerals/Vitamin C (Tab-A-Vit -) 1 tab PO DAILY [facility] Last Admin: 02/10/19 09:57 Dose: 1 tab Pantoprazole Sodium (Protonix -) 40 mg PO DAILY [facility] Last Admin: 02/10/19 09:57 Dose: 40 mg Sacubitril/Valsartan (Entresto 24 Mg-26 Mg Tablet) 1 tab PO BID [facility] Last Admin: 02/10/19 09:58 Dose: 1 tab Spironolactone (Aldactone -) 25 mg PO DAILY [facility] Last Admin: 02/10/19 09:58 Dose: 25 mg Thiamine HCl (Vitamin B1 -) 100 mg PO DAILY [facility] Last Admin: 02/10/19 09:57 Dose: 100 mg - Objective Vital Signs: Vital Signs Temperature 98.1 F 02/10/19 10:00 Pulse Rate 78 02/10/19 10:00 Respiratory Rate 20 02/10/19 10:00 Blood Pressure 95/68 02/10/19 10:00 O2 Sat by Pulse Oximetry (%) 96 02/10/19 09:00 Constitutional: Yes: No Distress, Calm Neck: Yes: Supple Cardiovascular: Yes: Tachycardia, Pulse Irregular Respiratory: Yes: Regular, CTA Bilaterally Gastrointestinal: Yes: Normal Bowel Sounds, Soft, Abdomen, Obese Extremities: Yes: Other (Warm and well-perfused) Edema: No Labs: CBC, BMP 02/10/19 07:40 02/10/19 07:40 INR, PTT INR 1.14 (0.83-1.09) H 10/08/19 14:46 - ....Imaging EKG: Report Reviewed (Tele: Rapid afib 140s ECG: Afib @ 116 LVH with repol abnl) Assessment/Plan 02/07/2019 Echo: Mild dilated LV with severely decreased LVEF 30%, mild GENNARO, mild TR 02/09/2019 Lexiscan Myoview: Mild inferior ischemia, no TID, LVEF 30-35% - Problems (1) Atrial fibrillation with RVR Assessment/Plan: Increase metoprolol ER 100 bid for HR control On Lovenox 100 bid with GI protection Ideally, pt should be converted to PO anticoagulant for long-term use (e.g. apixaban), but need to ascertain risk of falls (alcoholism). Severely decreased LVEF. Code(s): I48.91 - UNSPECIFIED ATRIAL FIBRILLATION (2) Alcoholism Assessment/Plan: f/u rehabilitation. ? neurologic/mental changes induced by alcohol (e.g. exhibits uninhibited, inappropriate behavior during this admission). Code(s): F10.20 - ALCOHOL DEPENDENCE, UNCOMPLICATED (3) HTN (hypertension) Code(s): I10 - ESSENTIAL (PRIMARY) HYPERTENSION (4) Acute on chronic systolic CHF (congestive heart failure), possible tachycardia-induced vs ETOH, r/o ischemic etiology Assessment/Plan: Increase metoprolol 100 bid as hemodynamic tolerate. On Entresto 24/26 bid (if cost is prohibitive, will need to return to ACEI). On spironolactone 25 qd and furosemide 40 qd F/u BUN/Cr, electrolytes, Is and Os, daily weight. Once CHF and AF are controlled, pt may be followed as outpatient by PMD, syrup maker. If deemed competent to comply with medications and rehab therapy, may have R&LHc as outpatient; may require ICD Code(s): I50.23 - ACUTE ON CHRONIC SYSTOLIC (CONGESTIVE) HEART FAILURE (5) CAD (coronary artery disease) Code(s): I25.10 - ATHSCL HEART DISEASE OF [place] CORONARY ARTERY W/O ANG PCTRS
--- NOTE | 2019-02-10 12:36 | PN ---
Teaching Attending Note Name of Resident: Linda Azul ATTENDING PHYSICIAN STATEMENT I saw and evaluated the patient. I reviewed the resident's note and discussed the case with the resident. I agree with the resident's findings and plan as documented with exceptions below. SUBJECTIVE: Patient seen and examined. no complaints. OBJECTIVE: Vital Signs Period Temp Pulse Resp BP Sys/Smith Pulse Ox Last 24 Hr 97.8 F-98.5 F 78-122 18-20 95-128/43-95 96-97 Intake & Output 02/07/19 02/08/19 02/09/19 02/10/19 23:59 23:59 23:59 23:59 Intake Total 10 740 100 500 Output Total 1 1 Balance 10 739 99 500 Weight 230 lb 6.4 oz 226 lb 226 lb 12.8 oz 226 lb 3.2 oz General: sitting in bed in no acute distress Chest: CTAB, no rales or wheezing CVS:S1S2 irregularly irregular Abdomen;Soft, obese, NT Extremities 1-2+ pitting edema, improved Home Medications Medication Instructions Recorded Diclofenac Sodium 1 applic TP ASDIR 02/06/19 Omeprazole 40 mg PO DAILY 02/06/19 Folic Acid - 1 mg PO DAILY 30 Days #30 tablet 02/09/19 Furosemide [Lasix] 40 mg PO DAILY 30 Days #30 tablet 02/09/19 Metoprolol Succinate [Toprol XL -] 100 mg PO DAILY 30 Days #30 02/09/19 tab.sr.24h Multivitamins [Multivit ([facility] 1 tab PO DAILY 30 Days #30 tab 02/09/19 Formulary)] Sacubitril/Valsartan [Entresto 24 1 tab PO BID 30 Days #60 tablet 02/09/19 mg-26 mg Tablet] Spironolactone [Aldactone -] 25 mg PO DAILY 30 Days #30 tablet 02/09/19 Thiamine HCl [Vitamin B1 -] 100 mg PO DAILY 30 Days #30 tablet 02/09/19 Active Medications Enoxaparin Sodium (Lovenox -) 100 mg SQ Q12H [facility] Last Admin: 02/10/19 09:57 Dose: 100 mg Folic Acid (Folic Acid -) 1 mg PO DAILY KATHY Last Admin: 02/10/19 09:57 Dose: 1 mg Furosemide (Lasix -) 40 mg PO DAILY [facility] Last Admin: 02/10/19 09:57 Dose: 40 mg Metoprolol Succinate (Toprol Xl -) 100 mg PO DAILY [facility] Last Admin: 02/10/19 09:58 Dose: 100 mg Multivitamins/Minerals/Vitamin C (Tab-A-Vit -) 1 tab PO DAILY [facility] Last Admin: 02/10/19 09:57 Dose: 1 tab Pantoprazole Sodium (Protonix -) 40 mg PO DAILY [facility] Last Admin: 02/10/19 09:57 Dose: 40 mg Sacubitril/Valsartan (Entresto 24 Mg-26 Mg Tablet) 1 tab PO BID [facility] Last Admin: 02/10/19 09:58 Dose: 1 tab Spironolactone (Aldactone -) 25 mg PO DAILY [facility] Last Admin: 02/10/19 09:58 Dose: 25 mg Thiamine HCl (Vitamin B1 -) 100 mg PO DAILY [facility] Last Admin: 02/10/19 09:57 Dose: 100 mg Laboratory Results - last 24 hr 02/10/19 02/10/19 07:40 07:40 WBC 5.2 RBC 4.88 Hgb 16.0 Hct 47.1 MCV 96.5 H MCH 32.8 MCHC 33.9 RDW 13.5 Plt Count 190 MPV 9.1 Absolute Neuts (auto) 2.4 Neutrophils % 45.6 Lymphocytes % 37.9 D Monocytes % 12.8 H Eosinophils % 3.2 D Basophils % 0.5 Nucleated RBC % 0 Sodium 140 Potassium 4.0 Chloride 108 H Carbon Dioxide 23 Anion Gap 9 BUN 23.2 H Creatinine 1.1 Est GFR (CKD-EPI)AfAm 77.86 Est GFR (CKD-EPI)NonAf 67.18 Random Glucose 95 Calcium 9.1 Phosphorus 2.8 Magnesium 2.3 Total Bilirubin 1.2 H AST 42 H ALT 58 Alkaline Phosphatase 57 Total Protein 7.2 Albumin 3.8 Microbiology 02/07/19 00:00 Urine - Urine Clean Catch Urine Culture - Final NO GROWTH OBTAINED ASSESSMENT AND PLAN: 73 yom with PMHx of HTN, HLD, ETOH abuse admitted with chest pain, found with new EF 30% and new onset atrial fibrillation -Acute systolic heart failure exacerbation -New cardiomyopathy -New onset Atrial fibrillation with RVR, from above +/- ETOH withdrawal -ETOH abuse/withdrawal -Hypokalemia -HTN -HLD Plan: Stress test noted, cardiology input appreciated, plan for medical management and outpatient follow up Lasix 40 mg daily. Change to eliquis, ambulating well, no fall concerns. ETOH cessation/NOAC counseling to patient. Toprol XL increased. Continue entresto/Spironolactone. Need close outpatient follow up with PCP/cardiology, discuss with patient in detail about need for med compliance, ETOH cessation and outpatient follo wup. Folate, thiamine, no concerns for ETOh withdrawal currently. Dispo dc home with instructions as above.
[2019-02-10 15:26] VITALS: BP 129/51; PULSE 108; TEMP 98.2
--- NOTE | 2019-02-10 17:48 | DS ---
Physical Exam: SUBJECTIVE: Patient seen and examined. He is denying chest pain and shortness of breath. He is expressing his wishes to leave now. OBJECTIVE: Vital Signs Period Temp Pulse Resp BP Sys/Smith Pulse Ox Last 24 Hr 97.8 F-98.5 F 78-121 20-20 95-129/43-95 96-97 PHYSICAL EXAM GENERAL: The patient is awake, alert, and fully oriented, in no acute distress. HEAD: Normal with no signs of trauma. EYES: PERRL, extraocular movements intact ENT: Ears normal, nares patent, moist mucous membranes. NECK: Trachea midline, full range of motion LUNGS: Breath sounds equal, clear to auscultation bilaterally, no accessory muscle use. HEART: Tachycardic, irregular rhythm, no murmur appreciated ABDOMEN: Nondistended, normoactive bowel sounds EXTREMITIES: Warm, well-perfused NEUROLOGICAL: Normal speech. PSYCH: Normal mood, normal affect. SKIN: Warm, dry, normal turgor LABS Laboratory Results - last 24 hr 02/10/19 02/10/19 07:40 07:40 WBC 5.2 RBC 4.88 Hgb 16.0 Hct 47.1 MCV 96.5 H MCH 32.8 MCHC 33.9 RDW 13.5 Plt Count 190 MPV 9.1 Absolute Neuts (auto) 2.4 Neutrophils % 45.6 Lymphocytes % 37.9 D Monocytes % 12.8 H Eosinophils % 3.2 D Basophils % 0.5 Nucleated RBC % 0 Sodium 140 Potassium 4.0 Chloride 108 H Carbon Dioxide 23 Anion Gap 9 BUN 23.2 H Creatinine 1.1 Est GFR (CKD-EPI)AfAm 77.86 Est GFR (CKD-EPI)NonAf 67.18 Random Glucose 95 Calcium 9.1 Phosphorus 2.8 Magnesium 2.3 Total Bilirubin 1.2 H AST 42 H ALT 58 Alkaline Phosphatase 57 Total Protein 7.2 Albumin 3.8 HOSPITAL COURSE: Mr. Washington is a 73y/o [place]ander speaking male with systolic CHF, a-fib with RVR, HTN, HLD, chronic pain, and alcohol use who presents with shortness of breath x 4 days. CXR showed cardiomegaly and pulmonary vascular congestion. Echo showed EF 30%and severe global hypokinesis of left ventricle. ~2kg weight loss since admission. BNP 2477 with no prior comparison. Nuclear stress test showed no global ischemia at rest and EF 30-35%. He was optimized for CHF with Entresto, Toprol, spironolactone as well as Lasix. He also had episodes of tachycardia after nuclear stress test just prior to planned discharge. He was given extra dose of metoprolol with some improvement initially. Tachycardia improved overnight and pt was able to be discharged. He is being started on Eliquis for ChadsVasc score 3. Pt also had transaminitis and U/S which showed hepatomegaly and was instructed to follow up with primary care for further monitoring. The patient was educated on the importance of obstaining from alcohol. He denies heavy alcohol use. It was also explained the patient is being started on AC which could put him at higher risk of bleeding, including from falls that are associated with alcohol use. Patient acknowledged understanding of risks. This was translated with [employer] [place] yard jacker Edilma #[id number]. Date of Admission:02/06/19 Date of Discharge: 02/10/19 Minutes to complete discharge: 35 Discharge Summary Problems reviewed: Yes Reason For Visit: CHF AFIB Current Active Problems Acute on chronic systolic CHF (congestive heart failure) (Acute) Alcoholism (Acute) Atrial fibrillation with RVR (Acute) CAD (coronary artery disease) (Acute) CHF (congestive heart failure) (Acute) HTN (hypertension) (Acute) Condition: Stable - Instructions Diet, Activity, Other Instructions: Hospital Visit: You were admitted to the hospital for shortness of breath. You were found to have a fast heart rate and your heart is not pumping as well as it should. You were given medications to bring your heart rate closer to normal and to help your heart pump better. You are feeling better and are ready to go home. You were also found on ultrasound to have a large liver and some liver disease. Your blood levels associated with your liver were also a little abnormal. There was no emergent treatment needed in the hospital. You will need to follow up with Dr. Jain once your leave. You were given the pneumococcal vaccine to help prevent certain pneumonias. Medications: STOP your current metoprolol. Your dosage has increased to 100mg. Continue your omeprazole and diclofenac cream. Furosemide (Lasix) 40mg once a day Spironolactone 25mg once a day Entresto 1 tablet (24mg/26mg) once a day Vitamin B1 100mg once a day Folic acid 1mg once a day Multi vitamin once a day Elliquis 5mg twice a day--This medication is a blood thinner, It is EXTREMELY IMPORTANT that you do not drink alcohol while taking this medication. You are at increased risk for falls and increased bleeding while taking this medication. Follow up with: Dr. Leon, cardiology, next week. It is very important that your follow up as soon as possible. Your heart needs to be monitored to make sure it is not getting worse. You may need more labs or studies done. You will need to have stress test done, Please discuss this further with cardiology. Dr. Jain, primary care, in the next month for your liver. You may need more labs and pictures done. Blood work Basic metabolic panel (BMP) in 1 week with your doctor. Other instructions: Return to the emergency room if you have chest pain, shortness of breath, abdominal pain, vomiting that does not stop with medications, dizziness, or loss of consciousness. You should weigh yourself daily. If you notice a 2-3 pound weight gain in 4-5 days, you should call Dr. Jain or go to the emergency room. You need your kidney function and potassium levels to be closely monitored with your doctor. You need to stop drinking alcohol. It causes a lot of problems, including heart and liver issues which you now have. If you stop, it could slow down progression of symptoms like difficulty breathing, or stomach problems like bleeding. Eating a healthy diet with lean meats, fruits, and vegetables can help you get stronger and can help lower the feeling of needing to drink. Referrals: Emma Jain MD [Primary Care Provider] - Gurinder Leon MD [Staff Physician] - Disposition: HOME - Home Medications Comprehensive Discharge Medication List: Ambulatory Orders Diclofenac Sodium 1 applic TP ASDIR 02/06/19 Omeprazole 40 mg PO DAILY 02/06/19 Folic Acid - 1 mg PO DAILY 30 Days #30 tablet 02/09/19 Furosemide [Lasix] 40 mg PO DAILY 30 Days #30 tablet 02/09/19 Metoprolol Succinate [Toprol XL -] 100 mg PO DAILY 30 Days #30 tab.sr.24h Multivitamins [Multivit ([facility] Formulary)] 1 tab PO DAILY 30 Days #30 tab Sacubitril/Valsartan [Entresto 24 mg-26 mg Tablet] 1 tab PO BID 30 Days #60 tablet 02/09/19 Spironolactone [Aldactone -] 25 mg PO DAILY 30 Days #30 tablet 02/09/19 Thiamine HCl [Vitamin B1 -] 100 mg PO DAILY 30 Days #30 tablet 02/09/19 Apixaban [Eliquis -] 5 mg PO BID #60 tablet 02/10/19 This patient is new to me today: No Emergency Visit: Yes ED Registration Date: 02/06/19 Care time: The patient presented to the Emergency Department on the above date and was hospitalized for further evaluation of their emergent condition. Critical Care patient: No - Discharge Referral Referred to [facility] Med P.C.: No ATTENDING PHYSICIAN STATEMENT I saw and evaluated the patient. I reviewed the resident's note and discussed the case with the resident. I agree with the resident's findings and plan as documented. SUBJECTIVE: OBJECTIVE: ASSESSMENT AND PLAN:
== END 2019-02-10 17:00 | disposition home or self-care (01) | DRG 291 ==
LOC: JER 14:18 → JERBED 16:01 → J4W 02-07 20:14
PROVIDERS: ADMIT Internal Medicine; ATTEND Hospitalist
DX: I11.0 Hypertensive heart disease with heart failure (principal); I50.21 Acute systolic (congestive) heart failure; I48.91 Unspecified atrial fibrillation; I42.9 Cardiomyopathy, unspecified; E87.6 Hypokalemia; E78.5 Hyperlipidemia, unspecified; E66.9 Obesity, unspecified; Z68.34 Body mass index [BMI] 34.0-34.9, adult; R07.9 Chest pain, unspecified; R74.0 Nonspecific elevation of levels of transaminase and lactic acid dehydrogenase [LDH]; R00.0 Tachycardia, unspecified; I25.10 Atherosclerotic heart disease of native coronary artery without angina pectoris; F10.20 Alcohol dependence, uncomplicated
CPT/HCPCS: 36415; 71045-TC-FY; 76705-TC; 78452-TC; 80053; 81003; 82248; 82550; 82553; 83690; 83735; 83880; 84100; 84443; 84484; 85025; 85610; 85730; 87086; 90670; 93005; 93010; 93017; 93306-TC; 97116-GP; 99285-25; A9502; J2785; J7030

== ENCOUNTER 2019-03-22 14:53 | Inpatient (IN) | payer OTHER ==
--- NOTE | 2019-03-22 15:00 | PDOC ---
Rapid Medical Evaluation Time Seen by Provider: 03/22/19 14:58 Medical Evaluation: Allergies Allergy/AdvReac Type Severity Reaction Status Date / Time No Known Drug Allergies Allergy Verified 05/08/15 13:04 03/22/19 14:59 I have performed a brief in-person evaluation of this patient. The patient presents with a chief complaint of: chf, rapid afib, cardiomyopathy , confusion Pertinent physical exam findings:stable and in NAD, non-focal I have ordered the following:labs, ekg The patient will proceed to the ED for further evaluation.
--- NOTE | 2019-03-22 15:35 | PDOC ---
History of Present Illness - General Chief Complaint: Shortness of Breath Stated Complaint: SENT BY PCP/[facility] [employer] Time Seen by Provider: 03/22/19 14:58 - History of Present Illness Initial Comments: HPI: 73yo M with PMH of Afib (on Eliquis), HTN, HLD, CHF (EF is 30% per ECHO on ) sent by his primary care provider for evaluation of leg swelling. Per chart review, patient was admitted to the hospital on 02/06/19 for Afib with RVR. Patient states the while he took his medications this morning, he will sometimes forget to take them. Does not follow a fluid-restricted diet. Has not seen his health information managers since discharge. Believes his leg swelling has worsened over the past two weeks. Denies shortness of breath. Feels mild chest pain. Admits to drinking four beers per day. Reports feeling weak. No fevers or chills. History limited as patient is a poor historian. History obtained with assistance from [employer] performance tester #[id number] PCP: Dr. Jain Cardio: Dr. Hall ROS: Constitutional: no fever, no chills HEENT: no throat pain, no dysphagia Cardiovascular: +leg swelling, no palpitations Respiratory: no cyanosis, no shortness of breath Gastrointestinal: no abdominal pain, no nausea Genitourinary: no dysuria, no hematuria Musculoskeletal: no myalgia, no arthralgia Skin: no rash, no itching Neurologic: no syncope, +weakness PE: General: Awake, alert, and fully oriented, in no acute distress Head: No signs of trauma Eyes: EOMI, sclera anicteric ENT: Moist mucus membranes Neck: Normal ROM, supple Lungs: Lungs clear, Normal breath sounds Cardio: Regular rhythm, S1 and S2 present Abdomen: Soft, nontender. No guarding, no rebound, no masses Extremities: Normal range of motion, Distal pulses present, BLE with significant pitting edema that is symmetric SKIN: Warm, Dry, normal turgor Neurologic: Cranial nerves II through XII grossly intact. Normal speech ED Course/MDM: DDX including but not limited to CHF exacerbation, DVT, PE, Afib with RVR, cirrhosis Labs, EKG, CXR Likely admission EKG: rate 108, QTc 482, afib with rvr, new twi in V5/V6 when compared to previous EKG 10/11/19 11/21/19 15:34 CBC WBC 10.3 K/mm3 (4.0-10.0) H 03/22/19 16:00 RBC 4.90 M/mm3 (4.00-5.60) 03/22/19 16:00 Hgb 15.7 GM/dL (11.7-16.9) 03/22/19 16:00 Hct 48.3 % (35.4-49) 03/22/19 16:00 MCV 98.6 fl (80-96) H 03/22/19 16:00 MCH 32.0 pg (25.7-33.7) 03/22/19 16:00 MCHC 32.5 g/dl (32.0-35.9) 03/22/19 16:00 RDW 14.0 % (11.9-15.9) 03/22/19 16:00 Plt Count 169 K/MM3 (134-434) 03/22/19 16:00 MPV 10.1 fl (7.5-11.1) D 03/22/19 16:00 Absolute Neuts (auto) 7.8 K/mm3 (1.5-8.0) 03/22/19 16:00 Neutrophils % 76.0 % (42.8-82.8) D 03/22/19 16:00 Lymphocytes % 11.9 % (8-40) D 03/22/19 16:00 Monocytes % 11.6 % (3.8-10.2) H 03/22/19 16:00 Eosinophils % 0.2 % (0-4.5) D 03/22/19 16:00 Basophils % 0.3 % (0-2.0) 03/22/19 16:00 Nucleated RBC % 0 % (0-0) 03/22/19 16:00 No leukocytosis No anemia CMP Sodium 146 mmol/L (136-145) H 03/22/19 15:12 Potassium 4.2 mmol/L (3.5-5.1) 03/22/19 15:12 Chloride 113 mmol/L (98-107) H 03/22/19 15:12 Carbon Dioxide 24 mmol/L (21-32) 03/22/19 15:12 Anion Gap 9 MMOL/L (8-16) 03/22/19 15:12 BUN 52.6 mg/dL (7-18) H 03/22/19 15:12 Creatinine 1.4 mg/dL (0.55-1.3) H 03/22/19 15:12 Est GFR (CKD-EPI)AfAm 58.17 03/22/19 15:12 Est GFR (CKD-EPI)NonAf 50.19 03/22/19 15:12 Random Glucose 76 mg/dL (74-106) 03/22/19 15:12 Calcium 8.8 mg/dL (8.5-10.1) 03/22/19 15:12 Magnesium 3.0 mg/dL (1.8-2.4) H 03/22/19 15:12 Total Bilirubin 2.6 mg/dL (0.2-1) H 03/22/19 15:12 AST 59 U/L (15-37) H 03/22/19 15:12 ALT 81 U/L (13-61) H 03/22/19 15:12 Alkaline Phosphatase 56 U/L (45-117) 03/22/19 15:12 Troponin I 0.06 ng/ml (0.00-0.05) H 03/22/19 15:12 B-Natriuretic Peptide 539.0 pg/ml (5-125) H 03/22/19 15:40 Total Protein 6.4 g/dl (6.4-8.2) 03/22/19 15:12 Albumin 3.6 g/dl (3.4-5.0) 03/22/19 15:12 Electrolytes unremarkable Cr mildly elevated Transaminitis Tpn elevated, 0.06 BNP elevated CXR: " EXAM#: TYPE/EXAM: RESULT: [id number] RAD/CHEST X- RAY PORTABLE* Chest: Failure. A single AP view of the chest reveals a prominent mediastinum with congestive changes and bibasilar pleural effusions with atelectasis or infiltrates. Left base is more affected than the right. Soft tissues are intact. There are degenerative spine changes. Correlation recommended. Reported By: Luis Hernandez MD 03/22/19 4230 " ASA and lasix ordered Plan for admission 03/22/19 17:55 Microblog sent; awaiting callback 03/22/19 18:[address] Larry James who accepted patient for telemetry admission under Dr. Smith 03/22/19 18:37 Past History - Past Medical History Allergies/Adverse Reactions: Allergies Allergy/AdvReac Type Severity Reaction Status Date / Time No Known Drug Allergies Allergy Verified 03/22/19 15:01 Home Medications: Ambulatory Orders Diclofenac Sodium 1 applic TP ASDIR 02/06/19 Omeprazole 40 mg PO DAILY 02/06/19 Folic Acid - 1 mg PO DAILY 30 Days #30 tablet 02/09/19 Furosemide [Lasix] 40 mg PO DAILY 30 Days #30 tablet 02/09/19 Metoprolol Succinate [Toprol XL -] 100 mg PO DAILY 30 Days #30 tab.sr.24h Multivitamins [Multivit ([facility] Formulary)] 1 tab PO DAILY 30 Days #30 tab Sacubitril/Valsartan [Entresto 24 mg-26 mg Tablet] 1 tab PO BID 30 Days #60 tablet 02/09/19 Spironolactone [Aldactone -] 25 mg PO DAILY 30 Days #30 tablet 02/09/19 Thiamine HCl [Vitamin B1 -] 100 mg PO DAILY 30 Days #30 tablet 02/09/19 Apixaban [Eliquis -] 5 mg PO BID #60 tablet 02/10/19 Cardiac Disorders: Yes CVA: No COPD: No Dementia: No Diabetes: No GI Disorders: Yes (GERD) Disorders: No HTN: Yes Hypercholesterolemia: No Liver Disease: No Seizures: No Thyroid Disease: No - Surgical History Abdominal Surgery: No Appendectomy: Yes ( A CHILD 1967) Cardiac Surgery: No Cholecystectomy: No Lung Surgery: No Neurologic Surgery: No Orthopedic Surgery: No - Immunization History Immunization Up to Date: No - Psycho Social/Smoking Cessation Hx Smoking History: Never smoked Have you smoked in the past 12 months: No Hx Alcohol Use: No Drug/Substance Use Hx: No Substance Use Type: None *Physical Exam - Vital Signs Last Vital Signs Temp Pulse Resp BP Pulse Ox 98 F 57 L 18 119/84 95 03/22/19 14:55 03/22/19 14:55 03/22/19 14:55 03/22/19 14:55 03/22/19 14:55 ED Treatment Course - LABORATORY CBC & Chemistry Diagram: 03/22/19 16:00 03/22/19 15:12 Discharge - Discharge Information Problems reviewed: Yes Clinical Impression/Diagnosis: Elevated troponin, Acute electrocardiogram changes CHF (congestive heart failure) Qualifiers: Heart failure type: systolic Heart failure chronicity: acute Qualified Code(s) : I50.21 - Acute systolic (congestive) heart failure Condition: Guarded - Admission Yes - Follow up/Referral - Patient Discharge Instructions - Post Discharge Activity
[2019-03-22 16:34] LABS: BASO % 0.3 % (0-2.0); EOS % 0.2 % (0-4.5); HEMATOCRIT 48.3 % (35.4-49); HEMOGLOBIN 15.7 GM/dL (11.7-16.9); LYMPH % 11.9 % (8-40); MCHC 32.5 g/dl (32.0-35.9); MEAN CELL VOLUME 98.6 fl (80-96); MEAN PLT VOLUME 10.1 fl (7.5-11.1); MONO % 11.6 % (3.8-10.2); PLATELET COUNT 169 K/MM3 (134-434); WHITE BLOOD COUNT 10.3 K/mm3 (4.0-10.0)
[2019-03-22 16:59] LABS: INR 1.38 (0.83-1.09); PROTHROMBIN TIME (PATIENT) 16.3 SEC (9.7-13.0)
[2019-03-22 17:02] LABS: ACTIVATED PTT 30.6 SECONDS (25.2-36.5)
[2019-03-22 17:18] LABS: ALBUMIN 3.6 g/dl (3.4-5.0); BILIRUBIN,TOTAL 2.6 mg/dL (0.2-1); BLOOD UREA NITROGEN 52.6 mg/dL (7-18); CALCIUM 8.8 mg/dL (8.5-10.1); CREATININE 1.4 mg/dL (0.55-1.3); POTASSIUM 4.2 mmol/L (3.5-5.1); TOT PROT 6.4 g/dl (6.4-8.2)
[2019-03-22] MEDS ORDERED: FUROSEMIDE 40 MG/4 ML INJECTABLE VIAL IVPUSH ONE (17:56)
[2019-03-22] MEDS ORDERED: ASPIRIN 81 MG CHEWABLE TABLETS PO ONE (17:56)
--- NOTE | 2019-03-22 18:23 | PDOC ---
Documentation entered by Akil Tripp SCRIBE, acting as scribe for Joy Chen MD. Joy Chen MD: This documentation has been prepared by the Josee olsen Nirvannie, SCRIBE, under my direction and personally reviewed by me in its entirety. I confirm that the documentation accurately reflects all work, treatment, procedures, and medical decision making performed by me. Attending Attestation - Resident Resident Name: Milana Arboleda - ED Attending Attestation I have performed the following: I have examined & evaluated the patient, The case was reviewed & discussed with the resident, I agree w/resident's findings & plan, Exceptions are as noted - HPI HPI: 03/22/19 16:41 The patient is a 73 year old male, with a significant past medical history of HTN, HLD, and newly diagnosed AFib and CHF (after recent hospitalization 02/06- 02/10), who presents to the emergency department with, lower extremity edema. As per patient, he was advised to report to the ED for further evaluation. Patient admits to both medication and dietary noncompliance. He denies any recent chest pain or shortness of breath. Allergies: NKDA - Physicial Exam PE: 03/22/19 18:16 Agree with resident exam - Medical Decision Making 03/22/19 18:17 73-year-old Angolan speaking male with a history of hypertension, hyperlipidemia , CHF, A. fib, alcohol abuse presents emergency department with progressive lower extremity edema, shortness of breath and medication noncompliance. X-ray concerning for congestive changes versus infiltrates. Patient with no infectious symptoms on presentation, denies coughing, fevers, chills. He has no white count. Chest x-ray more likely due to CHF exacerbation in the setting of medication noncompliance. Of note, patient's LFT and coags are also bumped compared to last admission, likely secondary to liver failure from continued alcohol abuse. Abdominal exam is benign and patient does not have any large visible pockets of ascites on his ultrasound. Plan at this time will be to diurese patient with IV Lasix and admit for further management.
[2019-03-22] MEDS ORDERED: FUROSEMIDE 40 MG/4 ML INJECTABLE VIAL ONE (18:46)
[2019-03-22] MEDS ORDERED: ASPIRIN 325 MG ENTERIC COATED TABLET (FP) ONE (18:46)
--- NOTE | 2019-03-22 19:19 | PN ---
Teaching Attending Note Name of Resident: Teodoro James ATTENDING PHYSICIAN STATEMENT I saw and evaluated the patient. I reviewed the resident's note and discussed the case with the resident. I agree with the resident's findings and plan as documented. SUBJECTIVE: Patient is a 73 year old man with PMH of Afib (on Eliquis), GERD, Chronic back pain, Alcohol abuse?, HTN, HLD and CHF (EF is 30% per ECHO on 02/07/19) sent by his primary care provider for evaluation of leg swelling. Per chart review, patient was admitted to the hospital on 02/06/19 for Afib with RVR. Patient states the while he took his medications this morning, he will sometimes forget to take them. Does not follow a fluid-restricted diet. Has not seen his roll tube setter since discharge. Believes his leg swelling has worsened over the past two weeks. Denies shortness of breath. Feels mild chest pain. Admits to drinking four beers per day. Reports feeling weak. No fevers or chills. History limited as patient is a poor historian. No tobacco or illicit drug use. Denies recent travel. OBJECTIVE: Alert Vital Signs Period Temp Pulse Resp BP Sys/Smith Pulse Ox Last 24 Hr 98 F 57 18 119/84 95 HEENT: No Jaundice, eye redness or discharge, PERRLA, EOMI. Normocephalic, atraumatic. External ears are normal and hearing is grossly intact. No nasal discharge. Neck: Supple, nontender. No palpable adenopathy or thyromegaly. No JVD Chest: Good effort. Bibasilar crackles. Clear to percussion. Heart: Regular. No S3, rub or murmur Abdomen: Not distended, soft, nontender and no HSM. No rebound or guarding. Normal bowel sounds. Ext: Peripheral pulses intact. Leg edema. Skin: Warm and dry. No petechiae, rash or ecchymosis. Neuro: Alert. Oriented x3. CN 2-12 grossly intact. Sensation grossly intact in all four extremities and DTR are symmetric. Psych: Appropriate mood and affect. Good insight. Current Medications Generic Name Dose Route Start Last Admin Trade Name Freq PRN Reason Stop Dose Admin Apixaban 5 mg 03/22/19 22:00 Eliquis - PO BID KATHY Folic Acid 1 mg 03/22/19 19:45 Folic Acid - PO DAILY [facility] Furosemide 40 mg 03/23/19 10:00 Lasix Injection - IVPUSH DAILY [facility] Multivitamins/Minerals/Vitamin C 1 tab 03/22/19 19:45 Tab-A-Vit - PO DAILY [facility] Non-Formulary Medication 1 applic 03/22/19 19:45 Diclofenac Sodium [Diclofenac Sodium] TP ASDIR KATHY Pantoprazole Sodium 40 mg 03/23/19 10:00 Protonix - PO DAILY KATHY Sacubitril/Valsartan 1 tab 03/22/19 22:00 Entresto 24 Mg-26 Mg Tablet PO BID KATHY Spironolactone 25 mg 03/22/19 19:45 Aldactone - PO DAILY KATHY Thiamine HCl 100 mg 03/22/19 19:45 Vitamin B1 - PO DAILY [facility] Home Medications Medication Instructions Recorded Diclofenac Sodium 1 applic TP ASDIR 02/06/19 Omeprazole 40 mg PO DAILY 02/06/19 Folic Acid - 1 mg PO DAILY 30 Days #30 tablet 02/09/19 Furosemide [Lasix] 40 mg PO DAILY 30 Days #30 tablet 02/09/19 Metoprolol Succinate [Toprol XL -] 100 mg PO DAILY 30 Days #30 02/09/19 tab.sr.24h Multivitamins [Multivit ([facility] 1 tab PO DAILY 30 Days #30 tab 02/09/19 Formulary)] Sacubitril/Valsartan [Entresto 24 1 tab PO BID 30 Days #60 tablet 02/09/19 mg-26 mg Tablet] Spironolactone [Aldactone -] 25 mg PO DAILY 30 Days #30 tablet 02/09/19 Thiamine HCl [Vitamin B1 -] 100 mg PO DAILY 30 Days #30 tablet 02/09/19 Apixaban [Eliquis -] 5 mg PO BID #60 tablet 02/10/19 Abnormal Lab Results 03/22/19 03/22/19 03/22/19 15:12 15:40 16:00 WBC 10.3 H MCV 98.6 H Monocytes % 11.6 H PT with INR INR Sodium 146 H Chloride 113 H BUN 52.6 H Creatinine 1.4 H Magnesium 3.0 H Total Bilirubin 2.6 H AST 59 H ALT 81 H Troponin I 0.06 H B-Natriuretic Peptide 539.0 H Urine Protein Urine Ketones 03/22/19 03/22/19 16:20 19:00 WBC MCV Monocytes % PT with INR 16.30 H INR 1.38 H Sodium Chloride BUN Creatinine Magnesium Total Bilirubin AST ALT Troponin I B-Natriuretic Peptide Urine Protein 1+ H Urine Ketones Trace H ASSESSMENT AND PLAN: 1. CHF exacerbation/Chest pain - CXR shows cardiomegaly, pulmonary vascular congestion, prominent mediastinum and bilateral pleural effusion. EKG shows afib with rate of 108, T wave inversion in I,II,aVL,V4-6 and prolonged QTc. Elevated troponin likely due to demand ischemia. Will monitor on telemetry and rule out ACS. Treat with IV lasix, restrict dietary salt intake and get daily standing weight. Elevated LFTs may signal hepatic congestion due to CHF - may also be due to effects of alcohol. Will get upper abdominal sonogram, hepatic serology and trend LFTs. Will continue comprehensive care for all of patients comorbid conditions including Eliquis for Afib. 2. MAYITO - Cause unclear. Will get kidney sonogram, urinalysis and monitor urine output. Consult nephrology. Avoid nephrotoxic agents such as NSAIDS, aminoglycosides, contrast dyes and certain Alternative medicine products. 3. Obesity Counseled on the risks associated with obesity. Will provide patient all the necessary assistance, counseling and positive reinforcement to facilitate weight loss. Consult berry picker. 4. Alcohol abuse? - Will implement [facility] alcohol withdrawal protocol and do neurochecks. Implement seizure, fall and aspiration precautions. Treat with thiamine and folic acid and monitor electrolytes (Ca,Mg,K,P). Counseled patient about abstaining from alcohol. Will consult reception specialist and refer to alcohol detox upon discharge. 5. Hypertension - Restart suitable outpatient antihypertensive drugs when clinically appropriate. Revise regimen to ensure [id number] excellent BP control and benefits counselor patient on the injurious effects of uncontrolled hypertension. Nonpharmacologic measures to control hypertension like weight loss , salt restriction and exercise discussed. Importance of adherence to treatment regimen and attainment of normotension emphasized. 6. DVT prophylaxis - On Eliquis 7. Advance directives - Full code
[2019-03-22 19:38] LABS: EPI CELLS 0.5 /HPF (0-5/HPF); HYALINE CASTS 3 /lpf (0-8); URINE APPEARANCE CLEAR; URINE BACTERIA 1.9 /hpf (NEGATIVE); URINE BILIRUBIN NEGATIVE (NEGATIVE); URINE COLOR YELLOW; URINE GLUCOSE (UA) NEGATIVE (NEGATIVE); URINE KETONE TRACE (NEGATIVE); URINE LEUK ESTERASE NEGATIVE (NEGATIVE); URINE NITRITE NEGATIVE (NEGATIVE); URINE PROTEIN 1+ (NEGATIVE); URINE RBC 1 /hpf (0-4); URINE WBC 1 /hpf (0-5)
[2019-03-22] MEDS ORDERED: ENOXAPARIN NA (PORCINE) 40 MG/0.4 ML DISP.SYRIN SQ SCH (19:45)
[2019-03-22] MEDS ORDERED: DICLOFENAC SODIUM TP SCH (19:45)
[2019-03-22] MEDS ORDERED: FUROSEMIDE 40 MG TABLET (FP) PO SCH (19:45)
[2019-03-22] MEDS: MULTIVITAMINS (DAILY MVI) TABLET (FP) PO SCH (21:34)
[2019-03-22] MEDS: APIXABAN 5 MG TABLET PO SCH (21:34)
[2019-03-22] MEDS: SPIRONOLACTONE 25 MG TABLET (FP) PO SCH (21:34)
[2019-03-22] MEDS: FOLIC ACID 1 MG TABLET (FP) PO SCH (21:34)
[2019-03-22] MEDS: SACUBITRIL/VALSARTAN 24 MG-26 MG TABLET PO SCH (21:34)
[2019-03-22] MEDS: THIAMINE HCL 100 MG TABLET (FP) PO SCH (21:34)
[2019-03-22] MEDS ORDERED: METOPROLOL TARTRATE 50 MG TABLET (FP) PO ONE (21:36)
--- NOTE | 2019-03-22 22:41 | HP ---
CHIEF COMPLAINT: SOB PCP: Dr. Jain HISTORY OF PRESENT ILLNESS: This is a 73 y/o spanish speaking M with a PMHx of AF w RVR (on eliquis 5BID), HFrEF(EF30-35%), HTN, HLD, ETOH abuse, who presented to ED c/o sob, worsening leg swelling due to medication non- compliance. History is limited due to issues with the shorts sifter phone. Per chart review, pt does not take his medications regularly. Does not follow a fluid-restricted diet. Has not seen his forestry fire aide since discharge. Believes his leg swelling has worsened over the past two weeks. Denies shortness of breath at the present time. Admits to mild chest pain. Admits to drinking four beers per day X 10 yrs but has not drank in a while. Reports feeling weak. No fevers or chills. History limited as patient is a poor historian. Cardio: Dr. Leon ER course was notable for: (1) IVP Lasix 20 given, INR 1.36, Trop- 0.06, 2nd one pending, bnp- 539 (2) Metoprolol 100 given for AF (3) CXR- congestive changes, bibasilar pleural effusions w atelectasis or infiltrates. Lt base >rt. Allergies No Known Drug Allergies Allergy (Verified 03/22/19 15:01) HOME MEDICATIONS: Home Medications Medication Instructions Recorded Diclofenac Sodium 1 applic TP ASDIR 02/06/19 Omeprazole 40 mg PO DAILY 02/06/19 Folic Acid - 1 mg PO DAILY 30 Days #30 tablet 02/09/19 Furosemide [Lasix] 40 mg PO DAILY 30 Days #30 tablet 02/09/19 Metoprolol Succinate [Toprol XL -] 100 mg PO DAILY 30 Days #30 02/09/19 tab.sr.24h Multivitamins [Multivit ([facility] 1 tab PO DAILY 30 Days #30 tab 02/09/19 Formulary)] Sacubitril/Valsartan [Entresto 24 1 tab PO BID 30 Days #60 tablet 02/09/19 mg-26 mg Tablet] Spironolactone [Aldactone -] 25 mg PO DAILY 30 Days #30 tablet 02/09/19 Thiamine HCl [Vitamin B1 -] 100 mg PO DAILY 30 Days #30 tablet 02/09/19 Apixaban [Eliquis -] 5 mg PO BID #60 tablet 02/10/19 REVIEW OF SYSTEMS unknown other than HPI PHYSICAL EXAMINATION Vital Signs - 24 hr 03/22/19 03/22/19 03/22/19 14:55 21:30 21:33 Temperature 98 F Pulse Rate 57 L Pulse Rate [ 127 H Right Radial] Respiratory 18 20 Rate Blood Pressure 119/84 Blood Pressure 138/126 H [Left Arm] O2 Sat by Pulse 95 95 98 Oximetry (%) GENERAL: Awake, alert, and fully oriented, in no acute distress. HEAD: Normal with no signs of trauma. EYES: Pupils equal, round and reactive to light, extraocular movements intact, sclera anicteric, conjunctiva clear. No lid lag. EARS, NOSE, THROAT: Ears normal, nares patent, oropharynx clear without exudates. Moist mucous membranes. NECK: Normal range of motion, no JVD, or masses. LUNGS: Breath sounds equal, clear to auscultation bilaterally. No wheezes, and no crackles. No accessory muscle use. HEART: Regular rate and rhythm, normal S1 and S2 without murmur, rub or gallop. ABDOMEN: Soft, nontender, not distended, normoactive bowel sounds, no guarding, no rebound, no masses. LOWER EXTREMITIES: 2+ pulses b/l, warm, well-perfused. No calf tenderness. 2+ peripheral edema, no tremors, asterixis. PSYCHIATRIC: Cooperative. Good eye contact. Appropriate mood and affect. SKIN: Warm, dry, no rashes or lesions noted Laboratory Results - last 24 hr 03/22/19 03/22/19 03/22/19 15:12 15:40 16:00 WBC 10.3 H RBC 4.90 Hgb 15.7 Hct 48.3 MCV 98.6 H MCH 32.0 MCHC 32.5 RDW 14.0 Plt Count 169 MPV 10.1 D Absolute Neuts (auto) 7.8 Neutrophils % 76.0 D Lymphocytes % 11.9 D Monocytes % 11.6 H Eosinophils % 0.2 D Basophils % 0.3 Nucleated RBC % 0 PT with INR INR PTT (Actin FS) Sodium 146 H Potassium 4.2 Chloride 113 H Carbon Dioxide 24 Anion Gap 9 BUN 52.6 H Creatinine 1.4 H Est GFR (CKD-EPI)AfAm 58.17 Est GFR (CKD-EPI)NonAf 50.19 Random Glucose 76 Calcium 8.8 Magnesium 3.0 H Total Bilirubin 2.6 H AST 59 H ALT 81 H Alkaline Phosphatase 56 Troponin I 0.06 H B-Natriuretic Peptide 539.0 H Total Protein 6.4 Albumin 3.6 Urine Color Urine Appearance Urine pH Ur Specific [place] Urine Protein Urine Glucose (UA) Urine Ketones Urine Blood Urine Nitrite Urine Bilirubin Urine Urobilinogen Ur Leukocyte Esterase Urine WBC (Auto) Urine RBC (Auto) Urine Casts (Auto) U Epithel Cells (Auto) Urine Bacteria (Auto) 03/22/19 03/22/19 16:20 19:00 WBC RBC Hgb Hct MCV MCH MCHC RDW Plt Count MPV Absolute Neuts (auto) Neutrophils % Lymphocytes % Monocytes % Eosinophils % Basophils % Nucleated RBC % PT with INR 16.30 H INR 1.38 H PTT (Actin FS) 30.6 Sodium Potassium Chloride Carbon Dioxide Anion Gap BUN Creatinine Est GFR (CKD-EPI)AfAm Est GFR (CKD-EPI)NonAf Random Glucose Calcium Magnesium Total Bilirubin AST ALT Alkaline Phosphatase Troponin I B-Natriuretic Peptide Total Protein Albumin Urine Color Yellow Urine Appearance Clear Urine pH 5.0 Ur Specific [place] 1.018 Urine Protein 1+ H Urine Glucose (UA) Negative Urine Ketones Trace H Urine Blood Trace Urine Nitrite Negative Urine Bilirubin Negative Urine Urobilinogen 1.0 Ur Leukocyte Esterase Negative Urine WBC (Auto) 1 Urine RBC (Auto) 1 Urine Casts (Auto) 3 U Epithel Cells (Auto) 0.5 Urine Bacteria (Auto) 1.9 ASSESSMENT/PLAN: This is a 73 y/o spanish speaking M with a PMHx of AF w RVR (on eliquis 5BID), HFrEF(EF30-35%), HTN, HLD, ETOH abuse, who presented to ED c/o sob, worsening leg swelling due to medication non-compliance. #Acute on Chronic systolic HF likely 2/2 AF with RVR - BNP 539 - c/w entresto - c/w spironolactone given pts EF <35%. - Check I and O's, daily weights - consult Dr. Leon - recent myocardial regadeneson scan (02/17)- EF 30-35%, no transient ischemic dilation, mild inf ischemia - cardio aware of these findings and pt supposed to follow up for cardiac catheterization and pt did not #Tropinemia likely 2/2 demand ischemia - NSTEMI r/o ACS given new TWI's on recent EKG - Troponin X 2 0.06, 0.05 - needs cardiac cath as o/p - lipid panel - tsh - cardio consulted #ETOH abuse - tough to assess given lack of history at this time, does not seem patient is acutely intoxicated or encephalopathic - AST/ALT- 59,81 - T bili 2.6, mg-3 - doubt necessary obtain fibrosure to assess liver fibrosis - liver sono - etoh cessation counseling - INR likely 1.38 due to liver dx - Vitamin B1 continue - MELD score #MAYITO - likely 2/2 to decreased renal perfusion from CHF - calculate Fena, Feurea, urine lytes, urine cr - UA - renal sono - Na 146 free H2o deficit 2.7 L #Leukocytosis - doubt infectious, - will rpt cxr in AM - if pt becomes febrile or wbc increases will culture - will rpt likely marginal ATTENDING PHYSICIAN STATEMENT I saw and evaluated the patient. I reviewed the resident's note and discussed the case with the resident. I agree with the resident's findings and plan as documented. SUBJECTIVE: OBJECTIVE: ASSESSMENT AND PLAN:
[2019-03-23 07:43] LABS: BASO % 0.1 % (0-2.0); EOS % 0.6 % (0-4.5); HEMOGLOBIN 16.6 GM/dL (11.7-16.9); LYMPH % 19.2 % (8-40); MCH 31.5 pg (25.7-33.7); MCHC 32.6 g/dl (32.0-35.9); MEAN CELL VOLUME 96.7 fl (80-96); MEAN PLT VOLUME 10.3 fl (7.5-11.1); MONO % 11.8 % (3.8-10.2); NEUT % 68.3 % (42.8-82.8); PLATELET COUNT 177 K/MM3 (134-434); RBC 5.28 M/mm3 (4.00-5.60); RDW 13.8 % (11.9-15.9); WHITE BLOOD COUNT 8.6 K/mm3 (4.0-10.0)
[2019-03-23 08:07] LABS: BILIRUBIN,TOTAL 2.9 mg/dL (0.2-1); BLOOD UREA NITROGEN 45.4 mg/dL (7-18); CALCIUM 8.6 mg/dL (8.5-10.1); CREATININE 1.4 mg/dL (0.55-1.3); MAGNESIUM 2.9 mg/dL (1.8-2.4); PHOSPHOROUS 3.6 mg/dL (2.5-4.9); POTASSIUM 3.5 mmol/L (3.5-5.1)
[2019-03-23] MEDS ORDERED: FUROSEMIDE 40 MG/4 ML INJECTABLE VIAL IVPUSH SCH (10:00)
[2019-03-23] MEDS: APIXABAN 5 MG TABLET PO SCH ×2 (10:03→22:04)
[2019-03-23] MEDS: SPIRONOLACTONE 25 MG TABLET (FP) PO SCH (10:03)
[2019-03-23] MEDS: MULTIVITAMINS (DAILY MVI) TABLET (FP) PO SCH (10:04)
[2019-03-23] MEDS: FOLIC ACID 1 MG TABLET (FP) PO SCH (10:04)
[2019-03-23] MEDS: SACUBITRIL/VALSARTAN 24 MG-26 MG TABLET PO SCH ×2 (10:04→23:33)
[2019-03-23] MEDS: THIAMINE HCL 100 MG TABLET (FP) PO SCH (10:04)
[2019-03-23] MEDS: PANTOPRAZOLE 40 MG TABLET (FP) PO SCH (10:04)
--- NOTE | 2019-03-23 13:04 | EKG ---
Test Reason : Blood Pressure : / mmHG Vent. Rate : 105 BPM Atrial Rate : 113 BPM P-R Int : 000 ms QRS Dur : 100 ms QT Int : 380 ms P-R-T Axes : 000 039 220 degrees QTc Int : 502 ms ATRIAL FIBRILLATION WITH RAPID VENTRICULAR RESPONSE MINIMAL VOLTAGE CRITERIA FOR LVH, MAY BE NORMAL VARIANT ABNORMAL ECG Confirmed by BECCA SPENCER MD ([id number]) on 03/23/2019 1:03:58 PM Referred By: Confirmed By:BECCA SPENCER MD
--- NOTE | 2019-03-23 13:16 | EKG ---
Test Reason : Blood Pressure : / mmHG Vent. Rate : 108 BPM Atrial Rate : 088 BPM P-R Int : 000 ms QRS Dur : 092 ms QT Int : 360 ms P-R-T Axes : 000 020 155 degrees QTc Int : 482 ms ATRIAL FIBRILLATION WITH RAPID VENTRICULAR RESPONSE ABNORMAL ECG Confirmed by BECCA SPENCER MD ([id number]) on 03/23/2019 1:15:42 PM Referred By: Confirmed By:BECCA SPENCER MD
--- NOTE | 2019-03-23 13:26 | CON.CARD ---
Consult Consult Specialty:: Cardiology Reason for Consultation:: chf - History of Present Illness History of Present Illness: 73yo M with PMH of Afib (on Eliquis), HTN, HLD, CHF (EF is 30% per ECHO on ) sent by his primary care provider for evaluation of leg swelling. Per chart review, patient was admitted to the hospital on 02/06/19 for Afib with RVR. Patient states the while he took his medications this morning, he will sometimes forget to take them. Does not follow a fluid-restricted diet. 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 Believes his leg swelling has worsened over the past two weeks. Denies shortness of breath. Feels mild chest pain. Admits to drinking four beers per day. Reports feeling weak. No fevers or chills. History limited as patient is a poor historian. - History Source History Provided By: Patient, Medical Record - Past Medical History Cardio/Vascular: Yes: AFIB, CHF, HTN, Hyperlipdemia - Alcohol/Substance Use Hx Alcohol Use: No - Smoking History Smoking history: Never smoked Have you smoked in the past 12 months: No Home Medications - Allergies Allergies/Adverse Reactions: Allergies Allergy/AdvReac Type Severity Reaction Status Date / Time No Known Drug Allergies Allergy Verified 03/22/19 15:01 - Home Medications Home Medications: Ambulatory Orders Diclofenac Sodium 1 applic TP ASDIR 02/06/19 Omeprazole 40 mg PO DAILY 02/06/19 Folic Acid - 1 mg PO DAILY 30 Days #30 tablet 02/09/19 Furosemide [Lasix] 40 mg PO DAILY 30 Days #30 tablet 02/09/19 Metoprolol Succinate [Toprol XL -] 100 mg PO DAILY 30 Days #30 tab.sr.24h Multivitamins [Multivit ([facility] Formul[facility])] 1 tab PO DAILY 30 Days #30 tab Sacubitril/Valsartan [Entresto 24 mg-26 mg Tablet] 1 tab PO BID 30 Days #60 tablet 02/09/19 Spironolactone [Aldactone -] 25 mg PO DAILY 30 Days #30 tablet 02/09/19 Thiamine HCl [Vitamin B1 -] 100 mg PO DAILY 30 Days #30 tablet 02/09/19 Apixaban [Eliquis -] 5 mg PO BID #60 tablet 02/10/19 Review of Systems - Review of Systems Constitutional: reports: No Symptoms Eyes: reports: No Symptoms HENT: reports: No Symptoms Neck: reports: No Symptoms Cardiovascular: reports: Edema, Shortness of Breath Respiratory: reports: SOB, SOB on Exertion Gastrointestinal: reports: No Symptoms Genitourinary: reports: No Symptoms Breasts: reports: No Symptoms Reported Musculoskeletal: reports: No Symptoms Integumentary: reports: No Symptoms Neurological: reports: No Symptoms Endocrine: reports: No Symptoms Hematology/Lymphatic: reports: No Symptoms Psychiatric: reports: No Symptoms Vital Signs: Vital Signs Temperature 98.5 F 03/23/19 08:00 Pulse Rate 114 H 03/23/19 08:00 Respiratory Rate 24 H 03/23/19 08:00 Blood Pressure 133/106 H 03/23/19 08:00 O2 Sat by Pulse Oximetry (%) 24 L 03/23/19 08:00 Constitutional: Yes: Well Nourished, No Distress, Calm Eyes: Yes: WNL, Conjunctiva Clear, EOM Intact HENT: Yes: WNL, Atraumatic, Normocephalic Neck: Yes: WNL, Supple, Trachea Midline Respiratory: Yes: WNL, Regular, CTA Bilaterally Gastrointestinal: Yes: WNL, Normal Bowel Sounds Renal/: Yes: WNL Cardiovascular: Yes: Pulse Irregular Heart Sounds: Yes: S1, S2 Musculoskeletal: Yes: WNL Extremities: Yes: WNL Edema: LLE: 2+, RLE: 2+ Integumentary: Yes: WNL Neurological: Yes: WNL, Alert, Oriented ...Motor Strength: WNL Psychiatric: Yes: WNL, Alert, Oriented - Other Data Labs, Other Data: CBC, BMP 03/23/19 05:30 03/23/19 05:30 INR, PTT INR 1.38 (0.83-1.09) H 03/22/19 16:20 Troponin, BNP 03/22/19 03/22/19 03/22/19 15:12 15:40 21:34 Troponin I 0.06 H 0.05 B-Natriuretic Peptide 539.0 H 03/23/19 05:30 Troponin I 0.04 B-Natriuretic Peptide Troponin, BNP 03/22/19 03/22/19 03/22/19 15:12 15:40 21:34 Troponin I 0.06 H 0.05 B-Natriuretic Peptide 539.0 H 03/23/19 05:30 Troponin I 0.04 B-Natriuretic Peptide Imaging - Results Chest X-ray: Image Reviewed (chf) EKG: Image Reviewed (af rvr) Assessment/Plan Afib (on Eliquis), HTN, HLD, CHF (EF is 30% per ECHO on 02/07/19) non complience ETOH abuse admitted with chf exacerbation Plan telemetry IV LASIX AC medical rx for systolic CHF
--- NOTE | 2019-03-23 16:23 | PN ---
Physical Exam: SUBJECTIVE: Patient seen and examined in the morning. No acute events overnight. Patient complains of bilateral leg swelling and pain. No complaints of chest pain, shortness of breath, cough, abdominal pain, nausea, vomiting, diarrhea. [employer] Support Services Manager used on [employer]: ID# [id number]. OBJECTIVE: Vital Signs Period Temp Pulse Resp BP Sys/Smith Pulse Ox Last 24 Hr 98.1 F-98.5 F 66-127 16-24 93-138/65-126 24-98 GENERAL: The patient is awake, alert, and fully oriented, in no acute distress. HEAD: Normal with no signs of trauma. EYES: PERRL, extraocular movements intact, sclera anicteric, conjunctiva clear. NECK: Trachea midline, full range of motion, supple. LUNGS: Breath sounds equal, clear to auscultation bilaterally, no wheezes, no crackles, no accessory muscle use. HEART: Irregularly irregular, S1, S2 without murmur, rub or gallop. ABDOMEN: Soft, nontender, nondistended, normoactive bowel sounds, no guarding, no rebound, no hepatosplenomegaly, no masses. EXTREMITIES: Warm well perfused. 3+ pitting edema in b/l lower extremities. SKIN: Warm, dry, normal turgor, no rashes or lesions noted Laboratory Results - last 24 hr 03/22/19 03/22/19 03/22/19 15:12 15:40 16:00 WBC 10.3 H RBC 4.90 Hgb 15.7 Hct 48.3 MCV 98.6 H MCH 32.0 MCHC 32.5 RDW 14.0 Plt Count 169 MPV 10.1 D Absolute Neuts (auto) 7.8 Neutrophils % 76.0 D Lymphocytes % 11.9 D Monocytes % 11.6 H Eosinophils % 0.2 D Basophils % 0.3 Nucleated RBC % 0 PT with INR INR PTT (Actin FS) Sodium 146 H Potassium 4.2 Chloride 113 H Carbon Dioxide 24 Anion Gap 9 BUN 52.6 H Creatinine 1.4 H Est GFR (CKD-EPI)AfAm 58.17 Est GFR (CKD-EPI)NonAf 50.19 Random Glucose 76 Calcium 8.8 Phosphorus Magnesium 3.0 H Total Bilirubin 2.6 H AST 59 H ALT 81 H Alkaline Phosphatase 56 Creatine Kinase Creatine Kinase Index CK-MB (CK-2) Troponin I 0.06 H B-Natriuretic Peptide 539.0 H Total Protein 6.4 Albumin 3.6 Triglycerides Cholesterol Total LDL Cholesterol HDL Cholesterol TSH Urine Color Urine Appearance Urine pH Ur Specific [place] Urine Protein Urine Glucose (UA) Urine Ketones Urine Blood Urine Nitrite Urine Bilirubin Urine Urobilinogen Ur Leukocyte Esterase Urine WBC (Auto) Urine RBC (Auto) Urine Casts (Auto) U Epithel Cells (Auto) Urine Bacteria (Auto) Ur Random Creatinine Ur Random Sodium Ur Random Potassium Ur Random Chloride Alcohol, Quantitative 03/22/19 03/22/19 03/22/19 16:20 19:00 21:34 WBC RBC Hgb Hct MCV MCH MCHC RDW Plt Count MPV Absolute Neuts (auto) Neutrophils % Lymphocytes % Monocytes % Eosinophils % Basophils % Nucleated RBC % PT with INR 16.30 H INR 1.38 H PTT (Actin FS) 30.6 Sodium Potassium Chloride Carbon Dioxide Anion Gap BUN Creatinine Est GFR (CKD-EPI)AfAm Est GFR (CKD-EPI)NonAf Random Glucose Calcium Phosphorus Magnesium Total Bilirubin AST ALT Alkaline Phosphatase Creatine Kinase Creatine Kinase Index CK-MB (CK-2) Troponin I 0.05 B-Natriuretic Peptide Total Protein Albumin Triglycerides 98 Cholesterol 138 Total LDL Cholesterol 92 HDL Cholesterol 35 L TSH 1.45 D Urine Color Yellow Urine Appearance Clear Urine pH 5.0 Ur Specific [place] 1.018 Urine Protein 1+ H Urine Glucose (UA) Negative Urine Ketones Trace H Urine Blood Trace Urine Nitrite Negative Urine Bilirubin Negative Urine Urobilinogen 1.0 Ur Leukocyte Esterase Negative Urine WBC (Auto) 1 Urine RBC (Auto) 1 Urine Casts (Auto) 3 U Epithel Cells (Auto) 0.5 Urine Bacteria (Auto) 1.9 Ur Random Creatinine Ur Random Sodium Ur Random Potassium Ur Random Chloride Alcohol, Quantitative 03/23/19 03/23/19 03/23/19 05:30 05:30 10:30 WBC 8.6 RBC 5.28 Hgb 16.6 Hct 51.0 H MCV 96.7 H MCH 31.5 MCHC 32.6 RDW 13.8 Plt Count 177 MPV 10.3 Absolute Neuts (auto) 5.8 Neutrophils % 68.3 Lymphocytes % 19.2 D Monocytes % 11.8 H Eosinophils % 0.6 D Basophils % 0.1 Nucleated RBC % 0 PT with INR INR PTT (Actin FS) Sodium 144 Potassium 3.5 Chloride 107 Carbon Dioxide 29 Anion Gap 8 BUN 45.4 H Creatinine 1.4 H Est GFR (CKD-EPI)AfAm 58.17 Est GFR (CKD-EPI)NonAf 50.19 Random Glucose 61 L Calcium 8.6 Phosphorus 3.6 Magnesium 2.9 H Total Bilirubin 2.9 H AST 65 H ALT 91 H Alkaline Phosphatase 63 Creatine Kinase 439 H Creatine Kinase Index 2.7 CK-MB (CK-2) 12.1 H Troponin I 0.04 B-Natriuretic Peptide Total Protein 7.0 Albumin 4.0 Triglycerides Cholesterol Total LDL Cholesterol HDL Cholesterol TSH Urine Color Urine Appearance Urine pH Ur Specific [place] Urine Protein Urine Glucose (UA) Urine Ketones Urine Blood Urine Nitrite Urine Bilirubin Urine Urobilinogen Ur Leukocyte Esterase Urine WBC (Auto) Urine RBC (Auto) Urine Casts (Auto) U Epithel Cells (Auto) Urine Bacteria (Auto) Ur Random Creatinine 41.0 Ur Random Sodium Ur Random Potassium Ur Random Chloride Alcohol, Quantitative 03/23/19 03/23/19 10:30 10:45 WBC RBC Hgb Hct MCV MCH MCHC RDW Plt Count MPV Absolute Neuts (auto) Neutrophils % Lymphocytes % Monocytes % Eosinophils % Basophils % Nucleated RBC % PT with INR INR PTT (Actin FS) Sodium Potassium Chloride Carbon Dioxide Anion Gap BUN Creatinine Est GFR (CKD-EPI)AfAm Est GFR (CKD-EPI)NonAf Random Glucose Calcium Phosphorus Magnesium Total Bilirubin AST ALT Alkaline Phosphatase Creatine Kinase Creatine Kinase Index CK-MB (CK-2) Troponin I B-Natriuretic Peptide Total Protein Albumin Triglycerides Cholesterol Total LDL Cholesterol HDL Cholesterol TSH Urine Color Urine Appearance Urine pH Ur Specific [place] Urine Protein Urine Glucose (UA) Urine Ketones Urine Blood Urine Nitrite Urine Bilirubin Urine Urobilinogen Ur Leukocyte Esterase Urine WBC (Auto) Urine RBC (Auto) Urine Casts (Auto) U Epithel Cells (Auto) Urine Bacteria (Auto) Ur Random Creatinine Ur Random Sodium 90 Ur Random Potassium 14.0 L Ur Random Chloride 97 L Alcohol, Quantitative < 3.0 Active Medications Generic Name Dose Route Start Last Admin Trade Name Freq PRN Reason Stop Dose Admin Apixaban 5 mg 03/22/19 22:00 03/23/19 10:03 Eliquis - PO 5 mg BID KATHY Administration Folic Acid 1 mg 03/22/19 19:45 03/23/19 10:04 Folic Acid - PO 1 mg DAILY KATHY Administration Furosemide 40 mg 03/23/19 10:00 03/23/19 10:04 Lasix Injection - IVPUSH 40 mg DAILY KATHY Administration Metoprolol Succinate 100 mg 03/22/19 22:00 03/23/19 10:04 Toprol Xl - PO 100 mg BID KATHY Administration Multivitamins/Minerals/Vitamin C 1 tab 03/22/19 19:45 03/23/19 10:04 Tab-A-Vit - PO 1 tab DAILY KTAHY Administration Non-Formulary Medication 1 applic 03/22/19 19:45 Diclofenac Sodium [Diclofenac Sodium] TP ASDIR KATHY Pantoprazole Sodium 40 mg 03/23/19 10:00 03/23/19 10:04 Protonix - PO 40 mg DAILY KATHY Administration Sacubitril/Valsartan 1 tab 03/22/19 22:00 03/23/19 10:04 Entresto 24 Mg-26 Mg Tablet PO 1 tab BID KATHY Administration Spironolactone 25 mg 03/22/19 19:45 03/23/19 10:03 Aldactone - PO 25 mg DAILY KATHY Administration Thiamine HCl 100 mg 03/22/19 19:45 03/23/19 10:04 Vitamin B1 - PO 100 mg DAILY KATHY Administration ASSESSMENT/PLAN: 73M PMH of AF w/ RVR, HF (EF of 30%), HTN, HLD, ETOH abuse, who presents with exacerbation of CHF. 1) CHF exacerbation -Likely due to noncompliance with medications. Was seen in [facility] for CHF and Afib on 02/06 with similar presenting symptoms. -Chest X-Ray shows b/l pleural effusions. Physical exam shows b/l edema of lower extremities. -Lasix 40 mg IV Qdaily -Continue Entresto 24-26 mg PO BID -Cardiology consulted, appreciate recs 2)Hx of Afib with RVR -Metoprolol 100 mg PO BID -Eliquis 5 mg PO BID 3)Uncontrolled HTN -Continue metoprolol 100 mg PO BID -Continue Spironolactone 25 mg PO Daily 4)Elevated Transaminases -Hepatitis Panel pending -History of alcohol abuse -U/S shows diffuse fatty infiltration of liver -Discriminant Function: 27.3, no need for steroids 5)MAYITO -Creatinine was normal on prior admission. -likely secondary to decreased renal perfusion from CHF. -F/U UA -Renal U/S ordered 6) Hx of EtOH abuse -Alcohol level on admission less than 3 -Monitor for withdrawal symptoms, no CIWA protocol started yet. -Thiamine 100 mg PO Daily -Folic acid 1 mg PO daily 7)Leukocytosis -resolved F: Oral hydration E: Monitor and replete as needed N: Sodium restricted diet DVT: Patient on Eliquis 5mg PO BID Visit type - Emergency Visit Emergency Visit: Yes ED Registration Date: 03/22/19 Care time: The patient presented to the Emergency Department on the above date and was hospitalized for further evaluation of their emergent condition. - New Patient This patient is new to me today: Yes Date on this admission: 03/23/19 - Critical Care Critical Care patient: No ATTENDING PHYSICIAN STATEMENT I saw and evaluated the patient. I reviewed the resident's note and discussed the case with the resident. I agree with the resident's findings and plan as documented. SUBJECTIVE: OBJECTIVE: ASSESSMENT AND PLAN:
--- NOTE | 2019-03-23 16:47 | CON.GI ---
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 Called to evaluate abnormal liver chemistries. Denies abdominal pain, known history of liver disease. Drinks 3-4 beers per day. Being evaluated by cardiology for CHF. Abdominal US revealed fatty liver, non dilated biliary tract and failed to reveal stones. He complains of intermittent chest pain as well. Admission H&P describes poor medication compliance and a history of A. Fib. There is no family history of colorectal cancer or liver disease. - History Source History Provided By: Patient, Medical Record Limitations to Obtaining History: Poor Historian - Past Medical History Cardio/Vascular: Yes: AFIB, CHF, HTN, Hyperlipdemia - Past Surgical History Additional Surgical History: Denies - Alcohol/Substance Use Hx Alcohol Use: No - Smoking History Smoking history: Never smoked Have you smoked in the past 12 months: No - Social History Usual Living Arrangement: With Spouse ADL: Independent Place of : Other ([place]) History of Recent Travel: No Home Medications - Allergies Allergies/Adverse Reactions: Allergies Allergy/AdvReac Type Severity Reaction Status Date / Time No Known Drug Allergies Allergy Verified 03/22/19 15:01 - Home Medications Home Medications: Ambulatory Orders Diclofenac Sodium 1 applic TP ASDIR 02/06/19 Omeprazole 40 mg PO DAILY 02/06/19 Folic Acid - 1 mg PO DAILY 30 Days #30 tablet 02/09/19 Furosemide [Lasix] 40 mg PO DAILY 30 Days #30 tablet 02/09/19 Metoprolol Succinate [Toprol XL -] 100 mg PO DAILY 30 Days #30 tab.sr.24h Multivitamins [Multivit ([facility] Formulary)] 1 tab PO DAILY 30 Days #30 tab Sacubitril/Valsartan [Entresto 24 mg-26 mg Tablet] 1 tab PO BID 30 Days #60 tablet 02/09/19 Spironolactone [Aldactone -] 25 mg PO DAILY 30 Days #30 tablet 02/09/19 Thiamine HCl [Vitamin B1 -] 100 mg PO DAILY 30 Days #30 tablet 02/09/19 Apixaban [Eliquis -] 5 mg PO BID #60 tablet 02/10/19 Family Medical History Other Family History: No family history of colorectal cancer or liver disease Review of Systems - Review of Systems Constitutional: denies: Chills, Fever Cardiovascular: reports: Chest Pain, Edema, Shortness of Breath Gastrointestinal: denies: Abdominal Pain, Vomiting Physical Exam-GI Vital Signs: Vital Signs Temperature 97.4 F L 03/23/19 16:35 Pulse Rate 77 03/23/19 16:35 Respiratory Rate 16 03/23/19 13:15 Blood Pressure 112/68 03/23/19 16:35 O2 Sat by Pulse Oximetry (%) 88 L 03/23/19 16:35 Constitutional: Yes: Calm Eyes: No: Sclera Icterus Cardiovascular: Yes: Pulse Irregular Respiratory: Yes: CTA Bilaterally Gastrointestinal Inspection: No: Distention, Scars ...Auscultate: Yes: Normoactive Bowel Sounds ...Palpate: Yes: Soft. No: Hepatomegaly, Splenomegaly Edema: LLE: 3+, RLE: 3+ Neurological: Yes: Alert Labs: CBC, BMP 03/23/19 05:30 03/23/19 05:30 INR, PTT INR 1.38 (0.83-1.09) H 03/22/19 16:20 Imaging - Results Ultrasound: Report Reviewed Problem List - Problems (1) Abnormal liver function tests Assessment/Plan: Likely multifactorial including passive congestion, alcohol use, ? component of rhabdomyoysis as well Macrocytosis suggestive of liver disease / alcohol use: Advise: Screening hepatitis serologies (hepatitis A/B panel, HCV diagnostic as opposed to acute hepatitis panel) MRCP when able to evaluate biliary tract Cardiac optimization Monitor for alcohol withdrawal Avoid hepatotoxic agents Advised patient regarding the need for complete alcohol cessation Dr. Moran covering the weekend Code(s): R94.5 - ABNORMAL RESULTS OF LIVER FUNCTION STUDIES
--- NOTE | 2019-03-23 18:00 | PN ---
Teaching Attending Note Name of Resident: Nini Mason ATTENDING PHYSICIAN STATEMENT I saw and evaluated the patient. I reviewed the resident's note and discussed the case with the resident. I agree with the resident's findings and plan as documented. SUBJECTIVE: Sleeping, rousable to AAO x 3. Some improvement in SOB. No CP/ palpitations/cough/sputum OBJECTIVE: Afebrile, Hemodynamically Stable. Last Vital Signs Temp Pulse Resp BP Pulse Ox 97.4 F L 77 16 112/68 96 03/23/19 16:35 03/23/19 16:35 03/23/19 13:15 03/23/19 16:35 03/23/19 16:40 HEENT - Atraumatic, Normocephalic. Heart - S1, S2, RRR Lungs - clear to auscultation. Abdomen - soft, non-tender. Bowel Sounds normal. Extremities - Edema ++ Laboratory Results - last 24 hr 03/22/19 03/22/19 03/23/19 19:00 21:34 05:30 WBC 8.6 RBC 5.28 Hgb 16.6 Hct 51.0 H MCV 96.7 H MCH 31.5 MCHC 32.6 RDW 13.8 Plt Count 177 MPV 10.3 Absolute Neuts (auto) 5.8 Neutrophils % 68.3 Lymphocytes % 19.2 D Monocytes % 11.8 H Eosinophils % 0.6 D Basophils % 0.1 Nucleated RBC % 0 Sodium Potassium Chloride Carbon Dioxide Anion Gap BUN Creatinine Est GFR (CKD-EPI)AfAm Est GFR (CKD-EPI)NonAf Random Glucose Calcium Phosphorus Magnesium Total Bilirubin AST ALT Alkaline Phosphatase Creatine Kinase Creatine Kinase Index CK-MB (CK-2) Troponin I 0.05 Total Protein Albumin Triglycerides 98 Cholesterol 138 Total LDL Cholesterol 92 HDL Cholesterol 35 L TSH 1.45 D Urine Color Yellow Urine Appearance Clear Urine pH 5.0 Ur Specific [place] 1.018 Urine Protein 1+ H Urine Glucose (UA) Negative Urine Ketones Trace H Urine Blood Trace Urine Nitrite Negative Urine Bilirubin Negative Urine Urobilinogen 1.0 Ur Leukocyte Esterase Negative Urine WBC (Auto) 1 Urine RBC (Auto) 1 Urine Casts (Auto) 3 U Epithel Cells (Auto) 0.5 Urine Bacteria (Auto) 1.9 Ur Random Creatinine Ur Random Sodium Ur Random Potassium Ur Random Chloride Alcohol, Quantitative 03/23/19 03/23/19 03/23/19 05:30 10:30 10:30 WBC RBC Hgb Hct MCV MCH MCHC RDW Plt Count MPV Absolute Neuts (auto) Neutrophils % Lymphocytes % Monocytes % Eosinophils % Basophils % Nucleated RBC % Sodium 144 Potassium 3.5 Chloride 107 Carbon Dioxide 29 Anion Gap 8 BUN 45.4 H Creatinine 1.4 H Est GFR (CKD-EPI)AfAm 58.17 Est GFR (CKD-EPI)NonAf 50.19 Random Glucose 61 L Calcium 8.6 Phosphorus 3.6 Magnesium 2.9 H Total Bilirubin 2.9 H AST 65 H ALT 91 H Alkaline Phosphatase 63 Creatine Kinase 439 H Creatine Kinase Index 2.7 CK-MB (CK-2) 12.1 H Troponin I 0.04 Total Protein 7.0 Albumin 4.0 Triglycerides Cholesterol Total LDL Cholesterol HDL Cholesterol TSH Urine Color Urine Appearance Urine pH Ur Specific [place] Urine Protein Urine Glucose (UA) Urine Ketones Urine Blood Urine Nitrite Urine Bilirubin Urine Urobilinogen Ur Leukocyte Esterase Urine WBC (Auto) Urine RBC (Auto) Urine Casts (Auto) U Epithel Cells (Auto) Urine Bacteria (Auto) Ur Random Creatinine 41.0 Ur Random Sodium 90 Ur Random Potassium 14.0 L Ur Random Chloride 97 L Alcohol, Quantitative 03/23/19 10:45 WBC RBC Hgb Hct MCV MCH MCHC RDW Plt Count MPV Absolute Neuts (auto) Neutrophils % Lymphocytes % Monocytes % Eosinophils % Basophils % Nucleated RBC % Sodium Potassium Chloride Carbon Dioxide Anion Gap BUN Creatinine Est GFR (CKD-EPI)AfAm Est GFR (CKD-EPI)NonAf Random Glucose Calcium Phosphorus Magnesium Total Bilirubin AST ALT Alkaline Phosphatase Creatine Kinase Creatine Kinase Index CK-MB (CK-2) Troponin I Total Protein Albumin Triglycerides Cholesterol Total LDL Cholesterol HDL Cholesterol TSH Urine Color Urine Appearance Urine pH Ur Specific [place] Urine Protein Urine Glucose (UA) Urine Ketones Urine Blood Urine Nitrite Urine Bilirubin Urine Urobilinogen Ur Leukocyte Esterase Urine WBC (Auto) Urine RBC (Auto) Urine Casts (Auto) U Epithel Cells (Auto) Urine Bacteria (Auto) Ur Random Creatinine Ur Random Sodium Ur Random Potassium Ur Random Chloride Alcohol, Quantitative < 3.0 Current Medications Generic Name Dose Route Start Last Admin Trade Name Freq PRN Reason Stop Dose Admin Apixaban 5 mg 03/22/19 22:00 03/23/19 10:03 Eliquis - PO 5 mg BID KATHY Administration Folic Acid 1 mg 03/22/19 19:45 03/23/19 10:04 Folic Acid - PO 1 mg DAILY KATHY Administration Furosemide 40 mg 03/23/19 10:00 03/23/19 10:04 Lasix Injection - IVPUSH 40 mg DAILY KATHY Administration Metoprolol Succinate 100 mg 03/22/19 22:00 03/23/19 10:04 Toprol Xl - PO 100 mg BID KATHY Administration Multivitamins/Minerals/Vitamin C 1 tab 03/22/19 19:45 03/23/19 10:04 Tab-A-Vit - PO 1 tab DAILY KATHY Administration Non-Formulary Medication 1 applic 03/22/19 19:45 Diclofenac Sodium [Diclofenac Sodium] TP ASDIR KATHY Pantoprazole Sodium 40 mg 03/23/19 10:00 03/23/19 10:04 Protonix - PO 40 mg DAILY KATHY Administration Sacubitril/Valsartan 1 tab 03/22/19 22:00 03/23/19 10:04 Entresto 24 Mg-26 Mg Tablet PO 1 tab BID KATHY Administration Spironolactone 25 mg 03/22/19 19:45 03/23/19 10:03 Aldactone - PO 25 mg DAILY KATHY Administration Thiamine HCl 100 mg 03/22/19 19:45 03/23/19 10:04 Vitamin B1 - PO 100 mg DAILY KATHY Administration Home Medications Medication Instructions Recorded Diclofenac Sodium 1 applic TP ASDIR 02/06/19 Omeprazole 40 mg PO DAILY 02/06/19 Folic Acid - 1 mg PO DAILY 30 Days #30 tablet 02/09/19 Furosemide [Lasix] 40 mg PO DAILY 30 Days #30 tablet 02/09/19 Metoprolol Succinate [Toprol XL -] 100 mg PO DAILY 30 Days #30 02/09/19 tab.sr.24h Multivitamins [Multivit ([facility] 1 tab PO DAILY 30 Days #30 tab 02/09/19 Formulary)] Sacubitril/Valsartan [Entresto 24 1 tab PO BID 30 Days #60 tablet 02/09/19 mg-26 mg Tablet] Spironolactone [Aldactone -] 25 mg PO DAILY 30 Days #30 tablet 02/09/19 Thiamine HCl [Vitamin B1 -] 100 mg PO DAILY 30 Days #30 tablet 02/09/19 Apixaban [Eliquis -] 5 mg PO BID #60 tablet 02/10/19 ASSESSMENT AND PLAN: 73 year old male with history of Atrial Fibrillation on Eliquis, Chronic Systolic CHF (EF 30-35%), HTN, HLD, Alcohol Abuse, presented to ED with increasing SOB and LE edema, likely sec to medication non-compliance. 1. Acute on Chronic Systolic HF Bibasilar Pleural effusions. IV Lasix diuresis and telemetry Resume home meds - Metoprolol, Entresto, Spironolactone. Recent myocardial regadeneson scan (02/17) - EF 30-35%, no transient ischemic dilation, mild inf ischemia, did not follow up for cardiac cath Cardiology following. 2. Elevated Troponin with T wave inversion on ECG Likely demand ischemia sec to CHF, Afib with RVR Likely underlying CAD Cardiology following. 3. Atrial fibrillation with RVR Resume home meds including Metoprolol and Eliquis. 4. 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 Patient claims last drink was 5 weeks ago LFTs elevated - Hepatitis panel and GI consulted. Abdominal US - diffuse fatty infiltrate, R pleural effusion Thiamine, MVI, Folate Monitor for Alcohol withdrawal. GI following. 5. MAYITO - sec to possible cardiorenal phenomenon Continue IV lasix and monitor renal response. Renal US requested. 6. Uncontrolled HTN - will monitor BP response on resuming home medications. DVT Px - on Eliquis GI Px - PPI
[2019-03-23 21:42] VITALS: BMI 33.5
[2019-03-23] MEDS ORDERED: PT OWN MED DRAWER 7, Y5N ONE (21:54)
--- NOTE | 2019-03-24 07:17 | PN ---
Progress Note (short form) - Note Progress Note: Coverage for Drs. Yoly Sánchez/Won Leon Chief Complaint: Events noted, notes reviewed, denies any chest discomfort but reports persistent dyspnea although improved History of Present Illness: Seen and examined on telemetry. Events noted, notes reviewed, denies any chest discomfort but reports persistent dyspnea although improved - Current Medication List Current Medications Apixaban (Eliquis -) 5 mg PO BID [facility] Last Admin: 03/23/19 22:04 Dose: 5 mg Folic Acid (Folic Acid -) 1 mg PO DAILY [facility] Last Admin: 03/23/19 10:04 Dose: 1 mg Furosemide (Lasix Injection -) 40 mg IVPUSH DAILY [facility] Last Admin: 03/23/19 10:04 Dose: 40 mg Metoprolol Succinate (Toprol Xl -) 100 mg PO BID [facility] Last Admin: 03/23/19 22:05 Dose: 100 mg Multivitamins/Minerals/Vitamin C (Tab-A-Vit -) 1 tab PO DAILY [facility] Last Admin: 03/23/19 10:04 Dose: 1 tab Non-Formulary Medication (Diclofenac Sodium [Diclofenac Sodium]) 1 applic TP ASDIR [facility] Pantoprazole Sodium (Protonix -) 40 mg PO DAILY [facility] Last Admin: 03/23/19 10:04 Dose: 40 mg Sacubitril/Valsartan (Entresto 24 Mg-26 Mg Tablet) 1 tab PO BID [facility] Last Admin: 03/23/19 23:33 Dose: 1 tab Spironolactone (Aldactone -) 25 mg PO DAILY [facility] Last Admin: 03/23/19 10:03 Dose: 25 mg Thiamine HCl (Vitamin B1 -) 100 mg PO DAILY [facility] Last Admin: 03/23/19 10:04 Dose: 100 mg Review of Systems Cardiovascular: As noted above Respiratory: denies: Cough or Sputum Production Gastrointestinal: denies: Nausea, Vomiting, Diarrhea, Constipation or Abdominal Discomfort Musculoskeletal: No Symptoms Reported Endocrine: No Symptoms Reported` - Objective Vital Signs: Last Vital Signs Temp Pulse Resp BP Pulse Ox 97.8 F 100 H 20 115/60 96 03/23/19 21:00 03/23/19 21:00 03/23/19 21:00 03/23/19 21:00 03/23/19 21:00 Intake & Output 03/21/19 03/22/19 03/23/1919 23:59 23:59 23:59 23:59 Intake Total 1030 Output Total 2500 500 Balance -1470 -500 Weight 230 lb 220 lb 3.2 oz 219 lb 12.8 oz Neck: Supple Negative JVD No Bruit Respiratory: Diminished Breath Sounds Bilaterally Cardiovascular: S1 S2 Irregularly Irregular Gastrointestinal: Soft Benign Normal Bowel Sounds Ext: Edema Labs: CBC, BMP 03/24/19 05:40 03/24/19 05:40 Troponin, BNP 03/23/19 05:30 Troponin I 0.04 Hepatic Panel Total Bilirubin 2.9 mg/dL (0.2-1) H 03/23/19 05:30 AST 65 U/L (15-37) H 03/23/19 05:30 ALT 91 U/L (13-61) H 03/23/19 05:30 Alkaline Phosphatase 63 U/L (45-117) 03/23/19 05:30 Albumin 4.0 g/dl (3.4-5.0) 03/23/19 05:30 INR, PTT INR 1.38 (0.83-1.09) H 03/22/19 16:20 Assessment/Plan ASSESSMENT: 1. Acute on chronic class II-III NYHA classification LV systolic failure related to dilated cardiomyopathy, unclear ischemic versus non- ischemic 2. CAD abnormal MPI study angina pectoris 3. Persistent atrial fibrillation [id number] score of 3 on DOAC's/Eliquis, periods of rapid ventricular response 4. Hypertension/HCVD 5. Hyperlipidemia 6. CKD 7. History of alcoholism PLAN: 1. Continue Lasix IV for an additional 24- 48 hours with close monitoring of renal function and electrolytes 2. Continue Toprol XL 3. Continue Entresto and dose titration as tolerated with close monitoring of renal function and electrolytes 4. Continue Aladactone with close monitoring of renal function and electrolytes 5. Continue Eliquis 6. Further plans as outlined by the primary cardiology team for additional outpatient evaluation provided patient demonstrates compliance to therapy administration Geraldo Montgomery M.D.
[2019-03-24 07:29] LABS: BASO % 0.3 % (0-2.0); EOS % 1.7 % (0-4.5); HEMATOCRIT 47.7 % (35.4-49); HEMOGLOBIN 15.9 GM/dL (11.7-16.9); LYMPH % 19.4 % (8-40); MCH 32.2 pg (25.7-33.7); MCHC 33.3 g/dl (32.0-35.9); MEAN CELL VOLUME 96.6 fl (80-96); MEAN PLT VOLUME 10.3 fl (7.5-11.1); MONO % 14.7 % (3.8-10.2); NEUT % 63.9 % (42.8-82.8); PLATELET COUNT 167 K/MM3 (134-434); RBC 4.94 M/mm3 (4.00-5.60); RDW 13.4 % (11.9-15.9); WHITE BLOOD COUNT 6.8 K/mm3 (4.0-10.0)
[2019-03-24 07:48] LABS: ALBUMIN 3.2 g/dl (3.4-5.0); BILIRUBIN,DIRECT 0.7 mg/dL (0.0-0.2); BILIRUBIN,TOTAL 2.3 mg/dL (0.2-1); CALCIUM 8.4 mg/dL (8.5-10.1); CREATININE 1.3 mg/dL (0.55-1.3); POTASSIUM 3.9 mmol/L (3.5-5.1); TOT PROT 6.1 g/dl (6.4-8.2)
[2019-03-24 08:13] LABS: INR 1.47 (0.83-1.09); PROTHROMBIN TIME (PATIENT) 17.4 SEC (9.7-13.0)
--- NOTE | 2019-03-24 10:47 | PN ---
Teaching Attending Note Name of Resident: Nini Mason ATTENDING PHYSICIAN STATEMENT I saw and evaluated the patient. I reviewed the resident's note and discussed the case with the resident. I agree with the resident's findings and plan as documented. SUBJECTIVE: Feels well, SOB improving. No CP/palpitations/cough/sputum OBJECTIVE: Afebrile, Hemodynamically Stable. Last Vital Signs Temp Pulse Resp BP Pulse Ox 97.8 F 100 H 20 115/60 96 03/23/19 21:00 03/23/19 21:00 03/23/19 21:00 03/23/19 21:00 03/23/19 21:00 Heart - S1, S2, RRR Lungs - decreased air entry at bases Abdomen - soft, non-tender. Bowel Sounds normal. Extremities - Edema ++ Laboratory Results - last 24 hr 03/23/19 03/23/19 03/23/19 05:30 10:30 10:30 WBC RBC Hgb Hct MCV MCH MCHC RDW Plt Count MPV Absolute Neuts (auto) Neutrophils % Lymphocytes % Monocytes % Eosinophils % Basophils % Nucleated RBC % PT with INR INR Sodium 144 Potassium 3.5 Chloride 107 Carbon Dioxide 29 Anion Gap 8 BUN 45.4 H Creatinine 1.4 H Est GFR (CKD-EPI)AfAm 58.17 Est GFR (CKD-EPI)NonAf 50.19 Random Glucose 61 L Calcium 8.6 Phosphorus 3.6 Magnesium 2.9 H Total Bilirubin 2.9 H Direct Bilirubin AST 65 H ALT 91 H Alkaline Phosphatase 63 Creatine Kinase 439 H Creatine Kinase Index 2.7 CK-MB (CK-2) 12.1 H Troponin I 0.04 Total Protein 7.0 Albumin 4.0 Ur Random Creatinine 41.0 Ur Random Sodium 90 Ur Random Potassium 14.0 L Ur Random Chloride 97 L Alcohol, Quantitative Hep A IgM Ab Confirm Hep Bs Antigen Hep B Core IgM Ab Hepatitis C Ab (EIA) 03/23/19 03/23/19 03/24/19 10:45 12:00 05:40 WBC RBC Hgb Hct MCV MCH MCHC RDW Plt Count MPV Absolute Neuts (auto) Neutrophils % Lymphocytes % Monocytes % Eosinophils % Basophils % Nucleated RBC % PT with INR INR Sodium 144 Potassium 3.9 Chloride 107 Carbon Dioxide 30 Anion Gap 7 L BUN 34.0 H Creatinine 1.3 Est GFR (CKD-EPI)AfAm 63.62 Est GFR (CKD-EPI)NonAf 54.90 Random Glucose 89 Calcium 8.4 L Phosphorus Magnesium Total Bilirubin 2.3 H Direct Bilirubin 0.7 H AST 55 H ALT 80 H Alkaline Phosphatase 61 Creatine Kinase Creatine Kinase Index CK-MB (CK-2) Troponin I Total Protein 6.1 L Albumin 3.2 L Ur Random Creatinine Ur Random Sodium Ur Random Potassium Ur Random Chloride Alcohol, Quantitative < 3.0 Hep A IgM Ab Confirm Negative Hep Bs Antigen Negative Hep B Core IgM Ab Negative Hepatitis C Ab (EIA) <0.1 03/24/19 03/24/19 05:40 05:40 WBC 6.8 RBC 4.94 Hgb 15.9 Hct 47.7 MCV 96.6 H MCH 32.2 MCHC 33.3 RDW 13.4 Plt Count 167 MPV 10.3 Absolute Neuts (auto) 4.4 Neutrophils % 63.9 Lymphocytes % 19.4 Monocytes % 14.7 H Eosinophils % 1.7 D Basophils % 0.3 Nucleated RBC % 0 PT with INR 17.40 H INR 1.47 H Sodium Potassium Chloride Carbon Dioxide Anion Gap BUN Creatinine Est GFR (CKD-EPI)AfAm Est GFR (CKD-EPI)NonAf Random Glucose Calcium Phosphorus Magnesium Total Bilirubin Direct Bilirubin AST ALT Alkaline Phosphatase Creatine Kinase Creatine Kinase Index CK-MB (CK-2) Troponin I Total Protein Albumin Ur Random Creatinine Ur Random Sodium Ur Random Potassium Ur Random Chloride Alcohol, Quantitative Hep A IgM Ab Confirm Hep Bs Antigen Hep B Core IgM Ab Hepatitis C Ab (EIA) Current Medications Generic Name Dose Route Start Last Admin Trade Name Freq PRN Reason Stop Dose Admin Apixaban 5 mg 03/22/19 22:00 03/23/19 22:04 Eliquis - PO 5 mg BID KATHY Administration Folic Acid 1 mg 03/22/19 19:45 03/23/19 10:04 Folic Acid - PO 1 mg DAILY [facility]Y Administration Furosemide 40 mg 03/23/19 10:00 03/23/19 10:04 Lasix Injection - IVPUSH 40 mg DAILY [facility]Y Administration Metoprolol Succinate 100 mg 03/22/19 22:00 03/23/19 22:05 Toprol Xl - PO 100 mg BID KATHY Administration Multivitamins/Minerals/Vitamin C 1 tab 03/22/19 19:45 03/23/19 10:04 Tab-A-Vit - PO 1 tab DAILY [facility] Administration Non-Formulary Medication 1 applic 03/22/19 19:45 Diclofenac Sodium [Diclofenac Sodium] TP ASDIR KATHY Pantoprazole Sodium 40 mg 03/23/19 10:00 03/23/19 10:04 Protonix - PO 40 mg DAILY [facility] Administration Sacubitril/Valsartan 1 tab 03/22/19 22:00 03/23/19 23:33 Entresto 24 Mg-26 Mg Tablet PO 1 tab BID KATHY Administration Spironolactone 25 mg 03/22/19 19:45 03/23/19 10:03 Aldactone - PO 25 mg DAILY [facility] Administration Thiamine HCl 100 mg 03/22/19 19:45 03/23/19 10:04 Vitamin B1 - PO 100 mg DAILY [facility] Administration Home Medications Medication Instructions Recorded Diclofenac Sodium 1 applic TP ASDIR 02/06/19 Omeprazole 40 mg PO DAILY 02/06/19 Folic Acid - 1 mg PO DAILY 30 Days #30 tablet 02/09/19 Furosemide [Lasix] 40 mg PO DAILY 30 Days #30 tablet 02/09/19 Metoprolol Succinate [Toprol XL -] 100 mg PO DAILY 30 Days #30 02/09/19 tab.sr.24h Multivitamins [Multivit ([facility] 1 tab PO DAILY 30 Days #30 tab 02/09/19 Formulary)] Sacubitril/Valsartan [Entresto 24 1 tab PO BID 30 Days #60 tablet 02/09/19 mg-26 mg Tablet] Spironolactone [Aldactone -] 25 mg PO DAILY 30 Days #30 tablet 02/09/19 Thiamine HCl [Vitamin B1 -] 100 mg PO DAILY 30 Days #30 tablet 02/09/19 Apixaban [Eliquis -] 5 mg PO BID #60 tablet 02/10/19 ASSESSMENT AND PLAN: 73 year old male with history of Atrial Fibrillation on Eliquis, Chronic Systolic CHF (EF 30-35%), HTN, HLD, Alcohol Abuse, presented to ED with increasing SOB and LE edema, likely sec to medication non-compliance. 1. Acute on Chronic Systolic HF Bibasilar Pleural effusions. IV Lasix diuresis ongoing - will increase to 40mg BID. Resumed on home meds - Metoprolol, Entresto, Spironolactone. Recent myocardial regadeneson scan (02/17) - EF 30-35%, no transient ischemic dilation, mild inf ischemia, did not follow up for cardiac cath Cardiology to guide further management. 2. Elevated Troponin with T wave inversion on ECG Likely demand ischemia sec to CHF, Afib with RVR Likely underlying CAD Further recommendations as per Cardio. 3. Atrial fibrillation with RVR Resumed on home meds including Metoprolol and Eliquis. 4. 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 LFTs elevated - Hepatitis panel negative. Abdominal US - diffuse fatty infiltrate, R pleural effusion Thiamine, MVI, Folate Monitor for Alcohol withdrawal. GI following. 5. MAYITO - sec to possible cardiorenal phenomenon - improving with IV Lasix Continue IV lasix and monitor renal response. Renal US - normal. 6. Uncontrolled HTN - BP much better controlled on resuming home medications. DVT Px - on Eliquis GI Px - PPI
--- NOTE | 2019-03-24 11:03 | PN ---
Physical Exam: SUBJECTIVE: Patient seen and examined in the morning. No acute events overnight. No significant events on telemetry monitoring. Patient complains of mild abdominal pain. No complaints of chest pain and shortness of breath, no complaints of nausea, vomiting, diarrhea. Cyrcacom ID: [id number] (Latvian) used. OBJECTIVE: Vital Signs Period Temp Pulse Resp BP Sys/Smith Pulse Ox Last 24 Hr 97.4 F-98.5 F 66-112 16-22 93-115/60-79 88-96 GENERAL: The patient is awake, alert, and fully oriented, in no acute distress. HEAD: Normal with no signs of trauma. EYES: PERRL, extraocular movements intact, sclera anicteric, conjunctiva clear. NECK: Trachea midline, full range of motion, supple. LUNGS: Crackles in the left lower lober, clear to auscultation in the right lower lobe. HEART: Irregularly irregular, S1, S2 without murmur, rub or gallop. ABDOMEN: Soft, nontender, nondistended, normoactive bowel sounds. EXTREMITIES: Warm well perfused. 3+ pitting edema in b/l lower extremities. SKIN: Warm, dry, normal turgor. Rash noted on dorsal surface of right hand. Laboratory Results - last 24 hr 03/23/19 03/23/19 03/23/19 05:30 10:30 10:30 WBC RBC Hgb Hct MCV MCH MCHC RDW Plt Count MPV Absolute Neuts (auto) Neutrophils % Lymphocytes % Monocytes % Eosinophils % Basophils % Nucleated RBC % PT with INR INR Sodium 144 Potassium 3.5 Chloride 107 Carbon Dioxide 29 Anion Gap 8 BUN 45.4 H Creatinine 1.4 H Est GFR (CKD-EPI)AfAm 58.17 Est GFR (CKD-EPI)NonAf 50.19 Random Glucose 61 L Calcium 8.6 Phosphorus 3.6 Magnesium 2.9 H Total Bilirubin 2.9 H Direct Bilirubin AST 65 H ALT 91 H Alkaline Phosphatase 63 Creatine Kinase 439 H Creatine Kinase Index 2.7 CK-MB (CK-2) 12.1 H Troponin I 0.04 Total Protein 7.0 Albumin 4.0 Ur Random Creatinine 41.0 Ur Random Sodium 90 Ur Random Potassium 14.0 L Ur Random Chloride 97 L Alcohol, Quantitative Hep A IgM Ab Confirm Hep Bs Antigen Hep B Core IgM Ab Hepatitis C Ab (EIA) 03/23/19 03/23/19 03/24/19 10:45 12:00 05:40 WBC RBC Hgb Hct MCV MCH MCHC RDW Plt Count MPV Absolute Neuts (auto) Neutrophils % Lymphocytes % Monocytes % Eosinophils % Basophils % Nucleated RBC % PT with INR INR Sodium 144 Potassium 3.9 Chloride 107 Carbon Dioxide 30 Anion Gap 7 L BUN 34.0 H Creatinine 1.3 Est GFR (CKD-EPI)AfAm 63.62 Est GFR (CKD-EPI)NonAf 54.90 Random Glucose 89 Calcium 8.4 L Phosphorus Magnesium Total Bilirubin 2.3 H Direct Bilirubin 0.7 H AST 55 H ALT 80 H Alkaline Phosphatase 61 Creatine Kinase Creatine Kinase Index CK-MB (CK-2) Troponin I Total Protein 6.1 L Albumin 3.2 L Ur Random Creatinine Ur Random Sodium Ur Random Potassium Ur Random Chloride Alcohol, Quantitative < 3.0 Hep A IgM Ab Confirm Negative Hep Bs Antigen Negative Hep B Core IgM Ab Negative Hepatitis C Ab (EIA) <0.1 03/24/19 03/24/19 05:40 05:40 WBC 6.8 RBC 4.94 Hgb 15.9 Hct 47.7 MCV 96.6 H MCH 32.2 MCHC 33.3 RDW 13.4 Plt Count 167 MPV 10.3 Absolute Neuts (auto) 4.4 Neutrophils % 63.9 Lymphocytes % 19.4 Monocytes % 14.7 H Eosinophils % 1.7 D Basophils % 0.3 Nucleated RBC % 0 PT with INR 17.40 H INR 1.47 H Sodium Potassium Chloride Carbon Dioxide Anion Gap BUN Creatinine Est GFR (CKD-EPI)AfAm Est GFR (CKD-EPI)NonAf Random Glucose Calcium Phosphorus Magnesium Total Bilirubin Direct Bilirubin AST ALT Alkaline Phosphatase Creatine Kinase Creatine Kinase Index CK-MB (CK-2) Troponin I Total Protein Albumin Ur Random Creatinine Ur Random Sodium Ur Random Potassium Ur Random Chloride Alcohol, Quantitative Hep A IgM Ab Confirm Hep Bs Antigen Hep B Core IgM Ab Hepatitis C Ab (EIA) Active Medications Generic Name Dose Route Start Last Admin Trade Name Freq PRN Reason Stop Dose Admin Apixaban 5 mg 03/22/19 22:00 03/23/19 22:04 Eliquis - PO 5 mg BID KATHY Administration Folic Acid 1 mg 03/22/19 19:45 03/23/19 10:04 Folic Acid - PO 1 mg DAILY [facility] Administration Furosemide 40 mg 03/23/19 10:00 03/23/19 10:04 Lasix Injection - IVPUSH 40 mg DAILY [facility] Administration Metoprolol Succinate 100 mg 03/22/19 22:00 03/23/19 22:05 Toprol Xl - PO 100 mg BID [facility]Y Administration Multivitamins/Minerals/Vitamin C 1 tab 03/22/19 19:45 03/23/19 10:04 Tab-A-Vit - PO 1 tab DAILY [facility] Administration Non-Formulary Medication 1 applic 03/22/19 19:45 Diclofenac Sodium [Diclofenac Sodium] TP ASDIR [facility] Pantoprazole Sodium 40 mg 03/23/19 10:00 03/23/19 10:04 Protonix - PO 40 mg DAILY [facility] Administration Sacubitril/Valsartan 1 tab 03/22/19 22:00 03/23/19 23:33 Entresto 24 Mg-26 Mg Tablet PO 1 tab BID KATHY Administration Spironolactone 25 mg 03/22/19 19:45 03/23/19 10:03 Aldactone - PO 25 mg DAILY [facility] Administration Thiamine HCl 100 mg 03/22/19 19:45 03/23/19 10:04 Vitamin B1 - PO 100 mg DAILY [facility] Administration ASSESSMENT/PLAN: 73M PMH of AF w/ RVR, HF (EF of 30%), HTN, HLD, ETOH abuse, who presents with exacerbation of CHF. 1) CHF exacerbation -Likely due to noncompliance with medications. Was seen in [facility] for CHF and Afib on 02/06 with similar presenting symptoms. -Chest X-Ray shows b/l pleural effusions. Physical exam shows b/l edema of lower extremities. -Lasix 40 mg IV BID -Continue Entresto 24-26 mg PO BID -Cardiology consulted, appreciate recs 2)Hx of Afib with RVR -Metoprolol 100 mg PO BID -Eliquis 5 mg PO BID 3)Uncontrolled HTN -Continue metoprolol 100 mg PO BID -Continue Spironolactone 25 mg PO Daily 4)Elevated Transaminases -Hepatitis Panel pending -History of alcohol abuse -U/S shows diffuse fatty infiltration of liver -Discriminant Function: 27.3, no need for steroids 5)MAYITO -Resolved -Creatinine was normal on prior admission. Down to within normal limits. -likely secondary to decreased renal perfusion from CHF. -Renal U/S shows no renal pathology. 6) Hx of EtOH abuse -Alcohol level on admission less than 3 -Monitor for withdrawal symptoms, no CIWA protocol started yet. -Thiamine 100 mg PO Daily -Folic acid 1 mg PO daily -Multivitamin 7)Leukocytosis -resolved F: Oral hydration E: Monitor and replete as needed N: Sodium restricted diet DVT: Patient on Eliquis 5mg PO BID Visit type - Emergency Visit Emergency Visit: Yes ED Registration Date: 03/22/19 Care time: The patient presented to the Emergency Department on the above date and was hospitalized for further evaluation of their emergent condition. - New Patient This patient is new to me today: No - Critical Care Critical Care patient: No ATTENDING PHYSICIAN STATEMENT I saw and evaluated the patient. I reviewed the resident's note and discussed the case with the resident. I agree with the resident's findings and plan as documented. SUBJECTIVE: OBJECTIVE: ASSESSMENT AND PLAN:
[2019-03-24] MEDS ORDERED: PT OWN MED DRAWER 7, Y5N ONE (12:33)
[2019-03-24] MEDS: APIXABAN 5 MG TABLET PO SCH ×2 (12:42→21:43)
[2019-03-24] MEDS: PANTOPRAZOLE 40 MG TABLET (FP) PO SCH (12:43)
[2019-03-24] MEDS: SPIRONOLACTONE 25 MG TABLET (FP) PO SCH (12:43)
[2019-03-24] MEDS: MULTIVITAMINS (DAILY MVI) TABLET (FP) PO SCH (12:43)
[2019-03-24] MEDS: THIAMINE HCL 100 MG TABLET (FP) PO SCH (12:43)
[2019-03-24] MEDS: SACUBITRIL/VALSARTAN 24 MG-26 MG TABLET PO SCH ×2 (12:43→21:43)
[2019-03-24] MEDS: FOLIC ACID 1 MG TABLET (FP) PO SCH (12:43)
[2019-03-24] MEDS: FUROSEMIDE 40 MG/4 ML INJECTABLE VIAL IVPUSH SCH (16:04)
[2019-03-25] MEDS: FUROSEMIDE 40 MG/4 ML INJECTABLE VIAL IVPUSH SCH ×2 (05:48→15:32)
[2019-03-25 07:23] LABS: BLOOD UREA NITROGEN 25.6 mg/dL (7-18); CALCIUM 8.8 mg/dL (8.5-10.1); CREATININE 1.3 mg/dL (0.55-1.3); POTASSIUM 3.8 mmol/L (3.5-5.1)
--- NOTE | 2019-03-25 07:46 | PN ---
Progress Note (short form) - Note Progress Note: Coverage for Drs. Yoly Sánchez/Won Leon Chief Complaint: Events noted, notes reviewed, denies any chest discomfort but reports persistent dyspnea although clinically improving History of Present Illness: Seen and examined on telemetry. Events noted, notes reviewed, denies any chest discomfort but reports persistent dyspnea although clinically improving - Current Medication List Current Medications Apixaban (Eliquis -) 5 mg PO BID [facility] Last Admin: 03/24/19 21:43 Dose: 5 mg Folic Acid (Folic Acid -) 1 mg PO DAILY [facility] Last Admin: 03/24/19 12:43 Dose: 1 mg Furosemide (Lasix Injection -) 40 mg IVPUSH BID@0600,1400 [facility] Last Admin: 03/25/19 05:48 Dose: 40 mg Metoprolol Succinate (Toprol Xl -) 100 mg PO BID [facility] Last Admin: 03/24/19 21:43 Dose: 100 mg Multivitamins/Minerals/Vitamin C (Tab-A-Vit -) 1 tab PO DAILY [facility] Last Admin: 03/24/19 12:43 Dose: 1 tab Pantoprazole Sodium (Protonix -) 40 mg PO DAILY [facility] Last Admin: 03/24/19 12:43 Dose: 40 mg Sacubitril/Valsartan (Entresto 24 Mg-26 Mg Tablet) 1 tab PO BID [facility] Last Admin: 03/24/19 21:43 Dose: 1 tab Spironolactone (Aldactone -) 25 mg PO DAILY [facility] Last Admin: 03/24/19 12:43 Dose: 25 mg Thiamine HCl (Vitamin B1 -) 100 mg PO DAILY [facility] Last Admin: 03/24/19 12:43 Dose: 100 mg Review of Systems Cardiovascular: As noted above Respiratory: denies: Cough or Sputum Production Gastrointestinal: denies: Nausea, Vomiting, Diarrhea, Constipation or Abdominal Discomfort Musculoskeletal: No Symptoms Reported Endocrine: No Symptoms Reported` - Objective Vital Signs: Last Vital Signs Temp Pulse Resp BP Pulse Ox 97.5 F L 89 20 100/56 L 95 03/25/19 09:00 03/25/19 09:00 03/25/19 09:00 03/25/19 09:00 03/24/19 20:32 Intake & Output 03/22/19 03/23/19 03/24/19 03/25/19 23:59 23:59 23:59 23:59 Intake Total 1030 410 400 Output Total 2500 500 Balance -1470 -90 400 Weight 230 lb 220 lb 3.2 oz 219 lb 12.8 oz 216 lb 9.6 oz Neck: Supple Negative JVD No Bruit Respiratory: Diminished Breath Sounds Bilaterally Cardiovascular: S1 S2 Irregularly Irregular Gastrointestinal: Soft Benign Normal Bowel Sounds Ext: Edema Labs: CBC, BMP 03/24/19 05:40 03/25/19 06:27 Hepatic Panel Total Bilirubin 2.3 mg/dL (0.2-1) H 03/24/19 05:40 Direct Bilirubin 0.7 mg/dL (0.0-0.2) H 03/24/19 05:40 AST 55 U/L (15-37) H 03/24/19 05:40 ALT 80 U/L (13-61) H 03/24/19 05:40 Alkaline Phosphatase 61 U/L (45-117) 03/24/19 05:40 Albumin 3.2 g/dl (3.4-5.0) L 03/24/19 05:40 INR, PTT INR 1.47 (0.83-1.09) H 03/24/19 05:40 Assessment/Plan ASSESSMENT: 1. Acute on chronic class II-III NYHA classification LV systolic failure related to dilated cardiomyopathy, unclear ischemic versus non- ischemic, clinically resolving 2. CAD abnormal MPI study angina pectoris 3. Persistent atrial fibrillation [id number] score of 3 on DOAC's/Eliquis, periods of rapid ventricular response 4. Hypertension/HCVD 5. Hyperlipidemia 6. CKD 7. History of alcoholism PLAN: 1. Continue Lasix IV for an additional 24 hours with close monitoring of renal function and electrolytes 2. Continue Toprol XL 3. Continue Entresto and dose titration as tolerated with close monitoring of renal function and electrolytes 4. Continue Aladactone with close monitoring of renal function and electrolytes 5. Continue Eliquis 6. Further plans as outlined by the primary cardiology team for additional outpatient evaluation provided patient demonstrates compliance to therapy administration Geraldo Montgomery M.D.
--- NOTE | 2019-03-25 10:36 | PN ---
Progress Note (short form) - Note Progress Note: SUBJECTIVE: Feels well, SOB improving. No CP/palpitations/cough/sputum. No orthopnea. OBJECTIVE: Afebrile, Hemodynamically Stable. Last Vital Signs Temp Pulse Resp BP Pulse Ox 97.5 F L 89 20 100/56 L 95 03/25/19 09:00 03/25/19 09:00 03/25/19 09:00 03/25/19 09:00 03/24/19 20:32 Heart - S1, S2, RRR Lungs - decreased air entry at bases Abdomen - soft, non-tender. Bowel Sounds normal. Extremities - Edema + mildly improved. Laboratory Results - last 24 hr 03/25/19 06:27 Sodium 141 Potassium 3.8 Chloride 105 Carbon Dioxide 31 Anion Gap 6 L BUN 25.6 H Creatinine 1.3 Est GFR (CKD-EPI)AfAm 63.62 Est GFR (CKD-EPI)NonAf 54.90 Random Glucose 99 Calcium 8.8 Current Medications Generic Name Dose Route Start Last Admin Trade Name Freq PRN Reason Stop Dose Admin Apixaban 5 mg 03/22/19 22:00 03/24/19 21:43 Eliquis - PO 5 mg BID KATHY Administration Folic Acid 1 mg 03/22/19 19:45 03/24/19 12:43 Folic Acid - PO 1 mg DAILY KATHY Administration Furosemide 40 mg 03/24/19 14:00 03/25/19 05:48 Lasix Injection - IVPUSH 40 mg BID@0600,1400 KATHY Administration Metoprolol Succinate 100 mg 03/22/19 22:00 03/24/19 21:43 Toprol Xl - PO 100 mg BID KATHY Administration Multivitamins/Minerals/Vitamin C 1 tab 03/22/19 19:45 03/24/19 12:43 Tab-A-Vit - PO 1 tab DAILY KATHY Administration Pantoprazole Sodium 40 mg 03/23/19 10:00 03/24/19 12:43 Protonix - PO 40 mg DAILY KATHY Administration Sacubitril/Valsartan 1 tab 03/22/19 22:00 03/24/19 21:43 Entresto 24 Mg-26 Mg Tablet PO 1 tab BID KATHY Administration Spironolactone 25 mg 03/22/19 19:45 03/24/19 12:43 Aldactone - PO 25 mg DAILY KATHY Administration Thiamine HCl 100 mg 03/22/19 19:45 03/24/19 12:43 Vitamin B1 - PO 100 mg DAILY KATHY Administration Home Medications Medication Instructions Recorded Diclofenac Sodium 1 applic TP ASDIR 02/06/19 Omeprazole 40 mg PO DAILY 02/06/19 Folic Acid - 1 mg PO DAILY 30 Days #30 tablet 02/09/19 Furosemide [Lasix] 40 mg PO DAILY 30 Days #30 tablet 02/09/19 Metoprolol Succinate [Toprol XL -] 100 mg PO DAILY 30 Days #30 02/09/19 tab.sr.24h Multivitamins [Multivit ([facility] 1 tab PO DAILY 30 Days #30 tab 02/09/19 Formulary)] Sacubitril/Valsartan [Entresto 24 1 tab PO BID 30 Days #60 tablet 02/09/19 mg-26 mg Tablet] Spironolactone [Aldactone -] 25 mg PO DAILY 30 Days #30 tablet 02/09/19 Thiamine HCl [Vitamin B1 -] 100 mg PO DAILY 30 Days #30 tablet 02/09/19 Apixaban [Eliquis -] 5 mg PO BID #60 tablet 02/10/19 ASSESSMENT AND PLAN: 73 year old male with history of Atrial Fibrillation on Eliquis, Chronic Systolic CHF (EF 30%), HTN, HLD, Alcohol Abuse, CAD s/p positive stress test , presented to ED with increasing SOB and LE edema, likely sec to medication non-compliance. 1. Acute on Chronic Systolic HF, likely sec to CAD Bibasilar Pleural effusions. IV Lasix diuresis ongoing Resumed on home meds - Metoprolol, Entresto, Spironolactone. Cardiology to guide further management. 2. Elevated Troponin with T wave inversion on ECG Likely demand ischemia sec to CHF, Afib with RVR Likely underlying CAD, especially in light of recent myocardial regadeneson scan (02/17) - EF 28% with mild inf ischemia - did not follow up for cardiac cath. Further recommendations/follow-up as per Cardio. 3. Atrial fibrillation with RVR Resumed on home meds including Metoprolol and Eliquis. 4. 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 LFTs elevated - Hepatitis panel negative. Abdominal US - diffuse fatty infiltrate, R pleural effusion Thiamine, MVI, Folate No signs of Alcohol withdrawal. GI following. 5. MAYITO - sec to possible cardiorenal phenomenon - improving with IV Lasix Continue IV lasix and monitor renal response. Renal US - normal. 6. Uncontrolled HTN - BP much better controlled on resuming home medications. BP borderline now likely due to IV lasix diuresis, will monitor. For transition to oral Lasix tomorrow. DVT Px - on Eliquis GI Px - PPI Visit type - Emergency Visit Emergency Visit: Yes ED Registration Date: 03/22/19 Care time: The patient presented to the Emergency Department on the above date and was hospitalized for further evaluation of their emergent condition. - New Patient This patient is new to me today: No - Critical Care Critical Care patient: No - Discharge Referral Referred to [facility] Med P.C.: No
[2019-03-25] MEDS: APIXABAN 5 MG TABLET PO SCH ×2 (10:40→21:20)
[2019-03-25] MEDS: SPIRONOLACTONE 25 MG TABLET (FP) PO SCH (10:40)
[2019-03-25] MEDS: THIAMINE HCL 100 MG TABLET (FP) PO SCH (10:41)
[2019-03-25] MEDS: MULTIVITAMINS (DAILY MVI) TABLET (FP) PO SCH (10:41)
[2019-03-25] MEDS: FOLIC ACID 1 MG TABLET (FP) PO SCH (10:41)
[2019-03-25] MEDS: PANTOPRAZOLE 40 MG TABLET (FP) PO SCH (10:41)
[2019-03-25 10:50] LABS: ALBUMIN 3.4 g/dl (3.4-5.0); BILIRUBIN,DIRECT 0.6 mg/dL (0.0-0.2); BILIRUBIN,TOTAL 1.9 mg/dL (0.2-1); TOT PROT 6.5 g/dl (6.4-8.2)
[2019-03-25] MEDS: SACUBITRIL/VALSARTAN 24 MG-26 MG TABLET PO SCH ×2 (12:33→21:21)
[2019-03-26] MEDS: FUROSEMIDE 40 MG/4 ML INJECTABLE VIAL IVPUSH SCH (05:57)
--- NOTE | 2019-03-26 08:06 | PN ---
Progress Note, Physician History of Present Illness: 73yo M with PMH of Afib (on Eliquis), HTN, HLD, CHF (EF is 30% per ECHO on ) sent by his primary care provider for evaluation of leg swelling. Per chart review, patient was admitted to the hospital on 02/06/19 for Afib with RVR. Patient states the while he took his medications this morning, he will sometimes forget to take them. Does not follow a fluid-restricted diet. Has not seen his travel ot since discharge. Believes his leg swelling has worsened over the past two weeks. Denies shortness of breath. Feels mild chest pain. Admits to drinking four beers per day. Reports feeling weak. No fevers or chills. History limited as patient is a poor historian. - Current Medication List Current Medications: Active Medications Apixaban (Eliquis -) 5 mg PO BID [facility], [facility] Last Admin: 03/25/19 21:20 Dose: 5 mg Folic Acid (Folic Acid -) 1 mg PO DAILY [facility], [facility] Last Admin: 03/25/19 10:41 Dose: 1 mg Furosemide (Lasix Injection -) 40 mg IVPUSH BID@0600,1400 [facility], [facility] Last Admin: 03/26/19 05:57 Dose: 40 mg Metoprolol Succinate (Toprol Xl -) 100 mg PO BID [facility], [facility] Last Admin: 03/25/19 21:21 Dose: 100 mg Multivitamins/Minerals/Vitamin C (Tab-A-Vit -) 1 tab PO DAILY [facility], [facility] Last Admin: 03/25/19 10:41 Dose: 1 tab Pantoprazole Sodium (Protonix -) 40 mg PO DAILY [facility] Last Admin: 03/25/19 10:41 Dose: 40 mg Sacubitril/Valsartan (Entresto 24 Mg-26 Mg Tablet) 1 tab PO BID [facility] Last Admin: 03/25/19 21:21 Dose: 1 tab Spironolactone (Aldactone -) 25 mg PO DAILY [facility] Last Admin: 03/25/19 10:40 Dose: 25 mg Thiamine HCl (Vitamin B1 -) 100 mg PO DAILY [facility] Last Admin: 03/25/19 10:41 Dose: 100 mg - Objective Vital Signs: Vital Signs Temperature 98.0 F 03/26/19 05:00 Pulse Rate 97 H 03/26/19 05:00 Respiratory Rate 20 03/26/19 05:00 Blood Pressure 101/60 03/26/19 05:00 O2 Sat by Pulse Oximetry (%) 95 03/25/19 20:37 Eyes: Yes: WNL, Conjunctiva Clear, EOM Intact HENT: Yes: WNL, Atraumatic, Normocephalic Neck: Yes: WNL, Supple, Trachea Midline Cardiovascular: Yes: Pulse Irregular Respiratory: Yes: WNL, Regular, CTA Bilaterally Gastrointestinal: Yes: WNL, Normal Bowel Sounds Genitourinary: Yes: WNL Musculoskeletal: Yes: WNL Extremities: Yes: WNL Edema: Yes Integumentary: Yes: WNL Neurological: Yes: WNL, Alert, Oriented ...Motor Strength: WNL Psychiatric: Yes: WNL Labs: CBC, BMP 03/24/19 05:40 03/25/19 06:27 INR, PTT INR 1.47 (0.83-1.09) H 03/24/19 05:40 Assessment/Plan Afib (on Eliquis), HTN, HLD, CHF (EF is 30% per ECHO on 02/07/19) non complience ETOH abuse admitted with chf exacerbation Plan d/c home on Lasix 40 BID PO AC medical rx for systolic CHF If deemed competent to comply with medications and rehab therapy, may have coronary angiogram and LVEF as outpatient.
[2019-03-26] MEDS: FOLIC ACID 1 MG TABLET (FP) PO SCH (09:59)
[2019-03-26] MEDS: APIXABAN 5 MG TABLET PO SCH (09:59)
[2019-03-26] MEDS: PANTOPRAZOLE 40 MG TABLET (FP) PO SCH (09:59)
[2019-03-26] MEDS: MULTIVITAMINS (DAILY MVI) TABLET (FP) PO SCH (09:59)
[2019-03-26] MEDS: SPIRONOLACTONE 25 MG TABLET (FP) PO SCH (09:59)
[2019-03-26] MEDS: SACUBITRIL/VALSARTAN 24 MG-26 MG TABLET PO SCH (10:00)
[2019-03-26] MEDS: THIAMINE HCL 100 MG TABLET (FP) PO SCH (10:00)
--- NOTE | 2019-03-26 11:23 | PN ---
Teaching Attending Note Name of Resident: Nini Mason ATTENDING PHYSICIAN STATEMENT I saw and evaluated the patient. I reviewed the resident's note and discussed the case with the resident. I agree with the resident's findings and plan as documented. SUBJECTIVE: Feels well, SOB improving. No CP/palpitations/cough/sputum. No orthopnea. OBJECTIVE: Afebrile, Hemodynamically Stable. Last Vital Signs Temp Pulse Resp BP Pulse Ox 98.2 F 97 H 20 90/43 L 93 L 03/26/19 09:00 03/26/19 10:00 03/26/19 05:00 03/26/19 10:00 03/26/19 09:00 Heart - S1, S2, RRR Lungs - decreased air entry at bases Abdomen - soft, non-tender. Bowel Sounds normal. Extremities - Edema + mildly improved. Current Medications Generic Name Dose Route Start Last Admin Trade Name Freq PRN Reason Stop Dose Admin Apixaban 5 mg 03/22/19 22:00 03/26/19 09:59 Eliquis - PO 5 mg BID KATHY Administration Folic Acid 1 mg 03/22/19 19:45 03/26/19 09:59 Folic Acid - PO 1 mg DAILY KATHY Administration Furosemide 40 mg 03/24/19 14:00 03/26/19 05:57 Lasix Injection - IVPUSH 40 mg BID@0600,1400 KATHY Administration Metoprolol Succinate 100 mg 03/22/19 22:00 03/26/19 09:59 Toprol Xl - PO Not Given BID KATHY Multivitamins/Minerals/Vitamin C 1 tab 03/22/19 19:45 03/26/19 09:59 Tab-A-Vit - PO 1 tab DAILY KATHY Administration Pantoprazole Sodium 40 mg 03/23/19 10:00 03/26/19 09:59 Protonix - PO 40 mg DAILY KATHY Administration Sacubitril/Valsartan 1 tab 03/22/19 22:00 03/26/19 10:00 Entresto 24 Mg-26 Mg Tablet PO 1 tab BID KATHY Administration Spironolactone 25 mg 03/22/19 19:45 03/26/19 09:59 Aldactone - PO Not Given DAILY KATHY Thiamine HCl 100 mg 03/22/19 19:45 03/26/19 10:00 Vitamin B1 - PO 100 mg DAILY KATHY Administration Home Medications Medication Instructions Recorded Omeprazole 40 mg PO DAILY 10/08/19 Folic Acid - 1 mg PO DAILY 30 Days #30 tablet 02/09/19 Metoprolol Succinate [Toprol XL -] 100 mg PO DAILY 30 Days #30 02/09/19 tab.sr.24h Multivitamins [Multivit ([facility] 1 tab PO DAILY 30 Days #30 tab 02/09/19 Formulary)] Sacubitril/Valsartan [Entresto 24 1 tab PO BID 30 Days #60 tablet 02/09/19 mg-26 mg Tablet] Spironolactone [Aldactone -] 25 mg PO DAILY 30 Days #30 tablet 02/09/19 Thiamine HCl [Vitamin B1 -] 100 mg PO DAILY 30 Days #30 tablet 02/09/19 Apixaban [Eliquis -] 5 mg PO BID #60 tablet 02/10/19 Furosemide [Lasix] 40 mg PO BID #60 tablet 03/26/19 ASSESSMENT AND PLAN: 73 year old male with history of Atrial Fibrillation on Eliquis, Chronic Systolic CHF (EF 30%), HTN, HLD, Alcohol Abuse, CAD s/p positive stress test , presented to ED with increasing SOB and LE edema, likely sec to medication non-compliance. 1. Acute on Chronic Systolic HF, likely sec to CAD Bibasilar Pleural effusions on imaging. responded well to Lasix diuresis - medicaly optimized for discharge on Lasix 40mg BID as per Cardio Resumed on all home meds - Metoprolol, Entresto, Spironolactone - importance of compliance emphasized. Prescriptions given Cardiology follow up. 2. Elevated Troponin with T wave inversion on ECG Likely demand ischemia sec to CHF, Afib with RVR Likely underlying CAD, especially in light of recent myocardial regadeneson scan (02/17) - EF 28% with mild inf ischemia - did not follow up for cardiac cath. Further recommendations/follow-up as per Cardio. - fr out-patient cath if patient demonstrates medication compliance and follow up schedule. 3. Atrial fibrillation with RVR Resumed on home meds including Metoprolol and Eliquis. 4. 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 LFTs elevated - Hepatitis panel negative. Abdominal US - diffuse fatty infiltrate, R pleural effusion Thiamine, MVI, Folate No signs of Alcohol withdrawal. Importance of alcohol abstinence emphasized. GI follow up on discharge with MRCP. 5. MAYITO - sec to possible cardiorenal phenomenon - improving with IV Lasix Transition to oral Lasix on discharge and monitor renal response with out- patient labwork in 1 week. Renal US - normal. 6. Uncontrolled HTN - BP much better controlled on resuming home medications. DVT Px - on Eliquis GI Px - PPI Medically optimized for discharge wit PCP, Cardio, GI follow ups.
--- NOTE | 2019-03-26 11:53 | PN.GI ---
GI Progress Note Subjective: Pt seen/examined at bedside, ambulating in room. [place] phone buildings and grounds supervisor used # [id number]. Pt reports feeling better, denies abdominal pain, n/v. Tolerating diet. Lower extremity edema improving. No complaints today. - Objective Vital Signs: Vital Signs Temperature 98.2 F 03/26/19 09:00 Pulse Rate 97 H 03/26/19 10:00 Respiratory Rate 20 03/26/19 05:00 Blood Pressure 90/43 L 03/26/19 10:00 O2 Sat by Pulse Oximetry (%) 93 L 03/26/19 09:00 Constitutional: Well Nourished, No Distress Cardiovascular: Yes: WNL, Regular Rate and Rhythm Respiratory: Yes: WNL, Regular, CTA Bilaterally ...Palpate: Yes: Other (Abd soft, nt, nd) Edema: Yes (Trace LE edema) Labs: CBC, BMP 03/24/19 05:40 INR, PTT INR 1.47 (0.83-1.09) H 03/24/19 05:40 Problem List - Problems (1) Abnormal liver function tests Assessment/Plan: 73yo male h/o etoh abuse, CHF, A fib on eliquis with lower extremity edema and elevated LFTs. Slowly improving, LFTs pending today. Likely multifactorial in setting of likely alcoholic liver disease and congestive hepatopathy. Hep serologies negative. -Await LFT results today -If persistent elevation would pursue MRCP to further evaluate the biliary tree -Continue optimization from a cardiac standpoint -2gNA diet -ETOH abstinence advised -Recommend check HBsAb to confirm immunity status, if negative would recommend HBV vaccination. Can be followed up as outpt pending dispo. Code(s): R94.5 - ABNORMAL RESULTS OF LIVER FUNCTION STUDIES
[2019-03-26 12:16] LABS: ALBUMIN 3.5 g/dl (3.4-5.0); BILIRUBIN,TOTAL 1.4 mg/dL (0.2-1); BLOOD UREA NITROGEN 31.4 mg/dL (7-18); CALCIUM 8.9 mg/dL (8.5-10.1); CREATININE 1.3 mg/dL (0.55-1.3); POTASSIUM 4.4 mmol/L (3.5-5.1); TOT PROT 6.4 g/dl (6.4-8.2)
[2019-03-26 13:41] VITALS: BP 122/74; PULSE 87; TEMP 97.7
--- NOTE | 2019-03-26 14:06 | DS ---
Physical Exam: SUBJECTIVE: Patient seen and examined in the morning. No acute events overnight , with no events on telemetry monitoring. No complaints of chest pain, shortness of breath, calf pain, abdominal pain, nausea, vomiting, diarrhea. Research Director used: [id number] OBJECTIVE: Vital Signs Period Temp Pulse Resp BP Sys/Smith Pulse Ox Last 24 Hr 97.6 F-98.2 F 57-105 20-20 90-122/43-100 93-95 PHYSICAL EXAM GENERAL: The patient is awake, alert, and fully oriented, in no acute distress. HEAD: Normal with no signs of trauma. EYES: PERRL, extraocular movements intact, sclera anicteric, conjunctiva clear. NECK: Trachea midline, full range of motion, supple. LUNGS: Crackles in the left lower lober, clear to auscultation in the right lower lobe. HEART: Irregularly irregular, S1, S2 without murmur, rub or gallop. ABDOMEN: Soft, nontender, nondistended, normoactive bowel sounds. EXTREMITIES: Warm well perfused. 2+ pitting edema in b/l lower extremities. SKIN: Warm, dry, normal turgor. Rash noted on dorsal surface of right hand. LABS Laboratory Results - last 24 hr 03/26/19 11:40 Sodium 140 Potassium 4.4 Chloride 105 Carbon Dioxide 30 Anion Gap 5 L BUN 31.4 H Creatinine 1.3 Est GFR (CKD-EPI)AfAm 63.62 Est GFR (CKD-EPI)NonAf 54.90 Random Glucose 90 Calcium 8.9 Total Bilirubin 1.4 H AST 61 H ALT 98 H Alkaline Phosphatase 63 Total Protein 6.4 Albumin 3.5 HOSPITAL COURSE: Date of Admission:03/22/19 Date of Discharge: 03/26/19 73M PMH of AF w/ RVR, HF (EF of 30%), HTN, HLD, ETOH abuse, who presents with exacerbation of CHF. Patient reports not being compliant with medications at home. Patient was seen by cardiology who restarted him on his prescribed medications, with his IV lasix increased to 40 mg BID. Patient also had elevated LFTs and GI was consulted. Discussed with Dr. Samson with regards to patient's elevated liver function tests. Had negative hepatitis panel. Plan is for patient to follow up with and will have MRCP completed as an outpatient. Patient was seen to have elevated creatinine that resolved with treatment of lasix. Patient was discharged on home medications with an increase of Furosemide 40 mg BID PO. Patient has follow up appointment with Dr. Sánchez on 03/27/19 as was originally scheduled before presented to the Emergency Department. Imaging done this stay: Chest X-Ray: A single AP view of the chest reveals a prominent mediastinum with congestive changes and bibasilar pleural effusions with atelectasis or infiltrates. Left base is more affected than the right. Soft tissues are intact. There are degenerative spine changes. Correlation recommended. U/S RUQ: 1. Right pleural effusion. 2. Probable mild diffuse fatty infiltration of the liver with no evidence of acute pathology. Renal U/S: Morphologically normal kidneys with no evidence of hydronephrosis or acute pathology. Minutes to complete discharge: 30 Discharge Summary Problems reviewed: Yes Reason For Visit: ELEVATED TROPONIN LEVEL Current Active Problems Abnormal liver function tests (Acute) CHF (congestive heart failure) (Chronic) Condition: Improved - Instructions Diet, Activity, Other Instructions: You were seen in the hospital for complaints of shortness of breath and leg swelling. You were given IV diuretics to help with your symptoms. Additionally, you evaluated by the avionics electrical engineer while you were here. You were found to have abnormal liver function and as a result you were seen by the registered public surveyor. During your hospital stay your symptoms improved. You are now stable for discharge home with visiting nurse services to help with your medication regimen. MEDICATIONS We have made the following changes to your medication regimen: Lasix 40 mg twice a day by mouth. Please continue taking the rest of your medications as directed. Please see list below: -Omeprazole 40 mg once a day by mouth -Eliquis 5 mg twice a day by mouth -Folic acid 1 mg once a day by mouth -Toprol XL 100 mg once a day by mouth -Entresto 1 tablet twice a day by mouth -Spironolactone 25 once a day by mouth -Multivitamin 1 tab once a day by mouth IT IS IMPORTANT TO TAKE YOUR MEDICATIONS PRESCRIBED. FOLLOW UP/RECOMMENDATIONS Please follow up with your primary care physician, Dr. Emma Jain within 1 week. You will need to have blood work done in 1 week to check your kidney function (BMP). Please follow up with your avionics electrical engineer, Dr. Sánchez, tomorrow 03/27. It is important that you follow up with the avionics electrical engineer as you will need a cardiac catheterization to evaluate your heart vessels. Please follow up with your gasteroenterologist, Dr. Barriga. Your blood work showed abnormal liver function so you will need to get an abdominal MRI done as an outpatient for further evaluation of this finding. Referrals: Miguel Barriga DO [Staff Physician] - Emma Jain MD [Staff Physician] - 1 Week Toy Sánchez MD [Staff Physician] - 03/27/19 Disposition: VNS/HOME HEALTH CARE - Home Medications Comprehensive Discharge Medication List: Ambulatory Orders Omeprazole 40 mg PO DAILY 02/06/19 Folic Acid - 1 mg PO DAILY 30 Days #30 tablet 02/09/19 Metoprolol Succinate [Toprol XL -] 100 mg PO DAILY 30 Days #30 tab.sr.24h Multivitamins [Multivit ([facility] Formulary)] 1 tab PO DAILY 30 Days #30 tab Sacubitril/Valsartan [Entresto 24 mg-26 mg Tablet] 1 tab PO BID 30 Days #60 tablet 02/09/19 Spironolactone [Aldactone -] 25 mg PO DAILY 30 Days #30 tablet 02/09/19 Thiamine HCl [Vitamin B1 -] 100 mg PO DAILY 30 Days #30 tablet 02/09/19 Apixaban [Eliquis -] 5 mg PO BID #60 tablet 02/10/19 Furosemide [Lasix] 40 mg PO BID #60 tablet 03/26/19 This patient is new to me today: No Emergency Visit: Yes ED Registration Date: 03/22/19 Care time: The patient presented to the Emergency Department on the above date and was hospitalized for further evaluation of their emergent condition. Critical Care patient: No - Discharge Referral Referred to [facility] Med P.C.: No ATTENDING PHYSICIAN STATEMENT I saw and evaluated the patient. I reviewed the resident's note and discussed the case with the resident. I agree with the resident's findings and plan as documented. SUBJECTIVE: OBJECTIVE: ASSESSMENT AND PLAN:
== END 2019-03-26 15:23 | disposition home health service (06) | DRG 291 ==
LOC: JER 14:53 → JERBED 18:04 → J4W 03-23 18:07
PROVIDERS: ADMIT Internal Medicine
DX: I13.0 Hypertensive heart and chronic kidney disease with heart failure and stage 1 through stage 4 chronic kidney disease, or unspecified chronic kidney disease (principal); I50.23 Acute on chronic systolic (congestive) heart failure; N17.9 Acute kidney failure, unspecified; I24.8 Other forms of acute ischemic heart disease; I48.19 Other persistent atrial fibrillation; Z79.01 Long term (current) use of anticoagulants; E78.5 Hyperlipidemia, unspecified; F10.10 Alcohol abuse, uncomplicated; Z91.14 Patient's other noncompliance with medication regimen; K21.9 Gastro-esophageal reflux disease without esophagitis; M54.9 Dorsalgia, unspecified; E66.9 Obesity, unspecified; Z68.32 Body mass index [BMI] 32.0-32.9, adult; D72.829 Elevated white blood cell count, unspecified; R94.5 Abnormal results of liver function studies; K70.10 Alcoholic hepatitis without ascites; I42.8 Other cardiomyopathies; N18.9 Chronic kidney disease, unspecified; I25.10 Atherosclerotic heart disease of native coronary artery without angina pectoris
CPT/HCPCS: 36415; 71045-TC-FY; 76705-TC; 76775-TC; 80048; 80053; 80061; 80074; 80076; 80307; 81003; 82436; 82550; 82553; 82565; 83721; 83735; 83880; 84100; 84133; 84300; 84443; 84484; 85025; 85610; 85730; 93005; 93010; 97116-GP; 97161-GP; 99285-25